=== PATIENT | female | born 1945 | race Caucasian/White ===

== ENCOUNTER 2018-04-23 12:28 | Outpatient (REF) | payer OTHER, SELFPAY ==
[2018-04-23 12:57] LABS: HCT 42.4 % (36.0-46.0); HGB 14.1 g/dL (12.0-15.5); Mean Corp. HGB Concentration 33.3 g/dL (32.0-36.0); Mean Corpuscular Hemoglobin 31.8 pg (27.0-33.0); Mean Corpuscular Volume 95.7 fL (80-95); Mean Platelet Volume 10.7 fL (8.0-11.0); Platelet Count 202 x1000/uL (130-400); RBC 4.43 m/cumm (4.00-5.20); RBC Distribution Width 12.7 % (11.7-14.6)
[2018-04-23 13:18] LABS: ALT 32 U/L (12-78); AST 16 U/L (15-37); Albumin 3.9 g/dL (3.4-5.0); Alkaline Phosphatase 65 U/L (46-116); Anion Gap 6.4 mmol/L (3-11); BUN 22 mg/dL (7-18); Bilirubin, Total 0.7 mg/dL (0.2-1.0); CO2 29.6 mmol/L (21.0-32.0); CREATININE 0.84 mg/dL (0.55-1.02); Chloride 101 mmol/L (98-107); Cholesterol 166 mg/dL (50-200); Glucose 153 mg/dL (70-100); HDL Cholesterol 71 mg/dL (40-60); LDL CHOLESTEROL 77 mg/dL (<100); Potassium 4.8 mmol/L (3.5-5.1); Sodium 137 mmol/L (136-145); Total Protein 6.4 g/dL (6.4-8.2); Triglyceride 96 mg/dL (30-150)
== END 2018-04-23 12:48 ==
LOC: NCHCN 12:28
PROVIDERS: PCP Family Medicine; Visit Provider Family Medicine
DX: I10 Essential (primary) hypertension (principal); E11.9 Type 2 diabetes mellitus without complications; E03.9 Hypothyroidism, unspecified
CPT/HCPCS: 80053; 80061; 83721; 85027

== ENCOUNTER 2018-12-04 15:30 | Outpatient (CLI) | payer OTHER, SELFPAY ==
--- NOTE | 2018-12-04 14:56 | DI.RAD_ITS ---
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 There are minimal degenerative changes involving the 1st metacarpophalangeal and interphalangeal joints.
== END 2018-12-04 15:50 ==
PROVIDERS: PCP Family Medicine; Referring Provider Family Medicine; Visit Provider Student in an Organized Health Care Education/Training Program
DX: M18.12 Unilateral primary osteoarthritis of first carpometacarpal joint, left hand (principal); M79.645 Pain in left finger(s); E11.9 Type 2 diabetes mellitus without complications; Z79.4 Long term (current) use of insulin; I10 Essential (primary) hypertension
CPT/HCPCS: 20600; 99203; 99214; 73140; J1030

== ENCOUNTER → 2019-01-29 14:25 | Outpatient (BNVA) | payer OTHER, SELFPAY | PROVIDERS: PCP Family Medicine; Referring Provider Family Medicine; Visit Provider Student in an Organized Health Care Education/Training Program | DX: M18.12 Unilateral primary osteoarthritis of first carpometacarpal joint, left hand (principal); E11.9 Type 2 diabetes mellitus without complications; Z97.4 Presence of external hearing-aid; I10 Essential (primary) hypertension; Z98.890 Other specified postprocedural states | CPT/HCPCS: 99213 ==

== ENCOUNTER 2019-05-06 10:46 | Outpatient (REF) | payer OTHER, SELFPAY ==
[2019-05-06 12:55] LABS: ALT 28 U/L (14-59); AST 13 U/L (15-37); Albumin 3.5 g/dL (3.4-5.0); Alkaline Phosphatase 68 U/L (46-116); Anion Gap 7.7 mmol/L (3-11); BUN 20 mg/dL (7-18); Bilirubin, Total 0.3 mg/dL (0.2-1.0); CO2 28.3 mmol/L (21.0-32.0); CREATININE 0.96 mg/dL (0.55-1.02); Calcium 8.6 mg/dL (8.5-10.1); Calculated LDL 82 mg/dL; Chloride 110 mmol/L (98-107); Cholesterol 159 mg/dL (<200); Estimated GFR 56.81 (mL/min/1.73m2); Glucose 102 mg/dL (74-106); HDL Cholesterol 61 mg/dL (40-60); Potassium 5.2 mmol/L (3.5-5.1); Sodium 146 mmol/L (136-145); TSH (W/Ref FT4) 0.71 uIU/mL (0.36-3.74); Total Protein 5.9 g/dL (6.4-8.2); Triglyceride 84 mg/dL (<150)
== END 2019-05-06 11:06 ==
LOC: NCHCN 10:46
PROVIDERS: PCP Family Medicine; Visit Provider Family Medicine
DX: E03.9 Hypothyroidism, unspecified (principal); E11.9 Type 2 diabetes mellitus without complications
CPT/HCPCS: 80053; 80061; 84443

== ENCOUNTER 2020-01-28 17:22 | Outpatient (REF) | payer OTHER, SELFPAY ==
[2020-01-28 21:08] LABS: ALT 24 U/L (14-59); AST 20 U/L (15-37); Albumin 3.8 g/dL (3.4-5.0); Alkaline Phosphatase 60 U/L (46-116); Anion Gap 11.9 mmol/L (3-11); BUN 19 mg/dL (7-18); Bilirubin, Total 0.6 mg/dL (0.2-1.0); CO2 25.1 mmol/L (21.0-32.0); CREATININE 1.01 mg/dL (0.55-1.02); Chloride 104 mmol/L (98-107); Estimated GFR 53.43 (mL/min/1.73m2); Glucose 112 mg/dL (74-106); Potassium 4.9 mmol/L (3.5-5.1); Sodium 141 mmol/L (136-145); TSH (W/Ref FT4) 1.74 uIU/mL (0.36-3.74); Total Protein 6.2 g/dL (6.4-8.2)
== END 2020-01-28 17:42 ==
LOC: NCHCN 17:22
PROVIDERS: PCP Family Medicine; Visit Provider Family Medicine
DX: E03.9 Hypothyroidism, unspecified (principal); I10 Essential (primary) hypertension; E11.9 Type 2 diabetes mellitus without complications
CPT/HCPCS: 80053; 84443

== ENCOUNTER 2020-02-24 00:27 | Outpatient (CLI) | payer OTHER, SELFPAY ==
--- NOTE | 2020-02-24 08:27 | DI.MAMMO_ITS ---
EXAM: MG MAMMO SCREENING CLINICAL HISTORY: SCREENING,Z12.31 TECHNIQUE: Bilateral full field digital CC and MLO mammographic images were obtained with 3D tomosyn thesis and utilizing computer aided detection (CAD). COMPARISON: Available for comparison. FINDINGS: Masses/Architectural Distortion: None seen. Microcalcifications: No suspicious pleomorphic-type are seen. Skin Thickening/Nipple Retraction: None. IMPRESSION: 1. No significant interval change with no specific features of malignancy noted. 2. Unless there is more urgent need, screening mammography is recommended, as per [employer] guidelines. BI-RADS Category 1 - Negative Breast Density - Category B - Scattered areas of fibroglandular density A negative radiographic report should not delay biopsy if a dominant or clinically suspicious mass is present. Up to ten percent of cancers are not identified on mammography. A negative report may reinforce clinical impression. Adenosis and dense breasts may obscure an underlying neoplasm. False positive reports average 6 to 10%. Patient will receive a letter notifying them of these results.
== END 2020-02-24 00:47 ==
PROVIDERS: PCP Family Medicine; Visit Provider Family Medicine
DX: Z12.31 Encounter for screening mammogram for malignant neoplasm of breast (principal)
CPT/HCPCS: 77063; 77067

== ENCOUNTER → 2020-06-11 08:41 | Outpatient (BNVA) | payer OTHER, SELFPAY | PROVIDERS: PCP Family Medicine; Referring Provider Family Medicine; Visit Provider Student in an Organized Health Care Education/Training Program | DX: M18.12 Unilateral primary osteoarthritis of first carpometacarpal joint, left hand (principal) | CPT/HCPCS: 20600; 99212; J1030 ==

== ENCOUNTER 2021-07-14 08:36 | Outpatient (REF) | payer OTHER, SELFPAY ==
[2021-07-14 14:57] LABS: HCT 40.9 % (36.0-46.0); HGB 12.9 g/dL (11.2-15.7); MCH 31.5 pg (27.0-33.0); MCHC 31.5 % (32.0-36.0); MPV 10.2 fL (8.0-11.0); Platelet Count 233 10^3/uL (130-400); RBC 4.09 10^6/uL (3.93-5.22); RDW 12.6 % (11.7-14.6); RDW-SD 45.9 fL; WBC 6.43 10^3/uL (4.4-10.8)
[2021-07-14 15:39] LABS: ALT 33 U/L (14-59); AST 19 U/L (15-37); Albumin 3.8 g/dL (3.4-5.0); Alkaline Phosphatase 73 U/L (46-116); Anion Gap 9.1 mmol/L (3-11); BUN 23 mg/dL (7-18); Bilirubin, Total 0.5 mg/dL (0.2-1.0); CO2 26.9 mmol/L (21.0-32.0); Calcium 9.6 mg/dL (8.5-10.1); Calculated LDL 68 mg/dL (<100); Chloride 106 mmol/L (98-107); Cholesterol 155 mg/dL (<200); Estimated GFR 53.91 (mL/min/1.73m2); Glucose 111 mg/dL (74-106); HDL Cholesterol 72 mg/dL (40-60); Potassium 5.2 mmol/L (3.5-5.1); Sodium 142 mmol/L (136-145); Total Protein 6.5 g/dL (6.4-8.2); Triglyceride 78 mg/dL (<150)
== END 2021-07-14 08:37 | disposition home or self-care (01) ==
LOC: NCHCN 08:36
PROVIDERS: PCP Family Medicine; Visit Provider Family Medicine
DX: I10 Essential (primary) hypertension (principal); E11.9 Type 2 diabetes mellitus without complications; R19.7 Diarrhea, unspecified
CPT/HCPCS: 80053; 80061; 85027; 83036

== ENCOUNTER → 2021-09-23 13:51 | Outpatient (BNVA) | payer MEDICARE, SELFPAY | PROVIDERS: PCP Family Medicine; Referring Provider Family Medicine; Visit Provider Physical Therapy Assistant | DX: R19.7 Diarrhea, unspecified (principal); I10 Essential (primary) hypertension; E11.9 Type 2 diabetes mellitus without complications; E03.9 Hypothyroidism, unspecified | CPT/HCPCS: 99215 ==

== ENCOUNTER 2021-10-06 03:45 | Outpatient (CLI) | payer MEDICARE, SELFPAY ==
[2021-10-06 11:53] LABS: TSH (W/Ref FT4) 2.35 uIU/mL (0.36-3.74)
== END 2021-10-06 03:46 | disposition home or self-care (01) ==
LOC: LBO 03:45
PROVIDERS: PCP Family Medicine; Visit Provider Physical Therapy Assistant
DX: E03.9 Hypothyroidism, unspecified (principal); R19.7 Diarrhea, unspecified
CPT/HCPCS: 36415; 84443

== ENCOUNTER → 2021-10-07 10:54 | Outpatient (BNVA) | payer MEDICARE, SELFPAY | PROVIDERS: PCP Family Medicine; Visit Provider Physical Therapy Assistant | DX: Z12.11 Encounter for screening for malignant neoplasm of colon (principal); R19.7 Diarrhea, unspecified; Z86.010 Personal history of colon polyps ==

== ENCOUNTER 2021-11-16 09:03 | Day surgery (SDC) | payer MEDICARE, SELFPAY ==
[2021-11-16] VITALS (8 sets, daily range): BP systolic 103–125; BP diastolic 62–78; PULSE 86–95; RESP 12–19; TEMP 36.3–36.9; O2SAT 91–99; BMI 23.6
--- NOTE | 2021-11-16 06:40 | W.PREOPHP ---
Assessment and Plan Assessment and plan (1) Encounter for colorectal cancer screening: Status: Acute Assessment and plan: The patient is here for Colonoscopy pre-op. Her last screening was in 2017 and was remarkable for tubular adenomatous polyp. She has no family history of colon cancer. She has not had any bowel habit changes. -Discussed colonoscopy bowel prep as well as the procedure. Discussed possible complications of the procedure to include bleeding, pain, perforation, missed small lesion/polyp, sore throat, aspiration and adverse reaction to the medications. Questions were answered to patient?s satisfaction. No guarantees were implied or given.? P// Colonoscopy under sedation. History of Present Illness Narrative: The patient is here for Colonoscopy pre-op. Her last screening was in 2017 and was remarkable for tubular adenomatous polyp. She has no family history of colon cancer. She has not had any bowel habit changes. 75 y/o female with a history of HTN, Type 2 DM, hypothyroidisim and depression presents to discuss proceeding with Colonoscopy. Patient presented previously for further evaluation of urgent, loose BMs at in the middle of the night most nights of the week. She states that she wakes feeling fecal urgency and must run to the restroom. Following passing the stool, her urge to have a BM resolves and she is able to return to sleep. Patient proceeded with holding her Metformin dosing at night with significant improvement in her symptoms. She reports she only had one episode during the 2 week period. She also reports that she was taking Miralax daily during this period of time. Patient's last Colonoscopy was in 2017 which was remarkable for tubular adenomatous polyp. She checked her BS at home during this time and her BS ranaged from 76-275 fasted. TSH was checked and was 2.35 on 10/06/21. Denies chest pain, palpitations, dyspnea or dyspnea with exertion. Denies personal or family history of adverse reactions to anesthesia. Denies any history of [place], stroke, seizures, bleeding or clotting disorders. Denies having any implanted metal. Denies any history of chemotherapy or radiation. No changes in her health since she was last seen Review of Systems All systems reviewed & are unremarkable except as noted in HPI and below PFSH All Active Problems Encounter for colorectal cancer screening (Acute) Diarrhea (Acute) Arthritis of carpometacarpal (CMC) joint of left thumb (Acute) Injection: 12/04/2018 Arthritis of carpometacarpal (CMC) joint of right thumb (Acute) Medical History Depression Diabetes Hypertension Hypothyroid Ptosis of both eyelids Tubular adenoma of colon (12/26/16) Surgical History Abdominal hysterectomy Colonoscopy - IV Sedation 2006 Colonoscopy - MAC (12/26/16) Oophrectomy, Both Tonsillectomy and adenoidectomy Family History Mother CHF (congestive heart failure) Father CHF (congestive heart failure) Colon polyps Social History Smoking/Tobacco Use Status: Former Tobacco Use Quit Date: 06/04/81 Smoking risk assessment performed?: Yes Alcohol Intake: current Alcohol Intake frequency: 0-2 drinks per day Alcohol type: wine and hard liquor Drug use: Never Substance use type: does not use Do you feel safe at home: Yes Do you feel safe in your relationship?: Yes Meds Allergies and Home Medications Allergies Allergy/AdvReac Type Severity Reaction Status Date / Time No Known Allergies Allergy Unverified 11/16/21 09:26 Home Medications Medication Instructions Recorded Confirmed Type aspirin 81 mg chewable tablet 81 mg PO DAILY 12/01/16 11/16/21 History citalopram 10 mg tablet (Celexa) 20 mg PO DAILY 12/01/16 11/16/21 History glipizide 10 mg tablet 10 mg PO DAILY 12/01/16 11/16/21 History insulin glargine 100 unit/mL 33 units SQ HS 12/01/16 11/16/21 History subcutaneous solution (Lantus U-100 Insulin) levothyroxine 100 mcg tablet 100 mcg PO DAILY 12/01/16 11/16/21 History metformin 1,000 mg tablet 1,000 mg PO BID 12/01/16 11/16/21 History multivitamin with minerals (DAILY 1 ea PO DAILY 12/01/16 11/16/21 History VITAMIN FORMULA-MINERALS tablet) losartan 100 mg tablet 100 mg PO DAILY 09/22/21 11/16/21 History cyanocobalamin (vitamin B-12) 1,000 mcg PO DAILY 09/23/21 11/16/21 History 1,000 mcg capsule bisacodyl 5 mg tablet,delayed 5 mg PO ONCE colonscopy bowel prep 10/07/21 11/16/21 Rx release (Dulcolax (bisacodyl)) #4 tabs polyethylene glycol 3350 17 238 g PO ONCE colonoscopy prep 10/07/21 11/16/21 Rx gram/dose oral powder #238 grams polyethylene glycol 3350 17 17 g PO DAILY 10/07/21 11/16/21 History gram/dose oral powder (Miralax) Exam Const General: comfortable and no acute distress [facility] Head: normocephalic and atraumatic Resp Effort & Inspection: normal respiratory effort Auscultation: clear to auscultation bilaterally Cardio Rate: regular rate Rhythm: regular rhythm Heart Sounds: no gallops, no murmurs and no rubs GI Inspection: normal to inspection Palpation: soft, no hepatosplenomegaly and nontender
--- NOTE | 2021-11-16 06:43 | W.COLOREPORT ---
Colonoscopy Report Date of procedure: 11/16/21 Pre-op diagnosis general: Colon Cancer screening and Hx of polyps Post-op diagnosis procedure note: same Procedure: Partial colonscopy- had to abort because patient started throwing up bile and acid Surgeon: Lida Vital Anesthesia Type: General:No Airway Estimated blood loss (mL): 0 Pathology: none sent Complications: None Disposition: same day Indications: The patient is here for Colonoscopy pre-op. Her last screening was in 2017 and was remarkable for tubular adenomatous polyp. She has no family history of colon cancer. She has not had any bowel habit changes. -Discussed colonoscopy bowel prep as well as the procedure. Discussed possible complications of the procedure to include bleeding, pain, perforation, missed small lesion/polyp, sore throat, aspiration and adverse reaction to the medications. Questions were answered to patient?s satisfaction. No guarantees were implied or given.? Prep: Miralax/Dulcolax Procedure Start Time: 10:36 Procedure Description: After informed consent was obtained the patient was taken to the procedure room and placed in a left decubitous position. Monitors were applied and a time out was done. The patients name, date of , procedure, allergies to medications and metal in their body was reviewed. The patient was then sedated. Once sedated and comfortable a rectal exam was done. External exam was normal. Internal exam revealed a normal sphincter tone and no palpable masses. The scope was then introduced and retro-flexed. No internal hemorrhoids, polyps or masses were identified on retro-flexion. The scope was then advanced to the transverse colon. At this point the patient started retching and then started throwing up bile. She briefly desaturated. At that point the scope was removed as there was concern for aspiration. The patient was slowly woken up and watched in the PACU. She had a cough but no shortness of breath and no chest pain.
--- NOTE | 2021-11-16 06:44 | W.PM.DSUDISC ---
Discharge Plan Disposition Patient Disposition: HOME Condition: Good Discharge Details Reason For Visit: Colonoscopy Attending Provider: Lida Vital Primary Care Provider: Zoe Fan Home Meds and New Rx's Prescriptions: Continued cyanocobalamin (vitamin B-12) 1,000 mcg capsule 1,000 mcg PO DAILY polyethylene glycol 3350 [Miralax] 17 gram/dose powder 17 g PO DAILY insulin glargine [Lantus U-100 Insulin] 100 UNIT/1 ML solution 33 units SQ HS citalopram [Celexa] 10 MG tablet 20 mg PO DAILY glipizide 10 MG tablet 10 mg PO DAILY levothyroxine 100 MCG tablet 100 mcg PO DAILY metformin 1,000 MG tablet 1,000 mg PO BID DAILY VITAMIN FORMULA-MINERALS 1 EACH tablet 1 ea PO DAILY aspirin 81 MG tablet,chewable 81 mg PO DAILY losartan 100 mg tablet 100 mg PO DAILY Discontinued polyethylene glycol 3350 17 gram/dose powder 238 g PO ONCE Qty: 238 0RF Rx Instructions: take per colonoscopy instructions bisacodyl [Dulcolax (bisacodyl)] 5 mg tablet,delayed release (DR/EC) 5 mg PO ONCE Qty: 4 0RF Rx Instructions: take per colonoscopy instructions Discharge Instructions Additional Instructions: Other- unfortunately you started throwing up as I was going in with the scope and Your Oxygen saturation droped. We didn't feel that it would be safe to continue because of the risk of aspiration. Follow up: Please call the office to reschedule the colonoscopy. We will plan to do it with you intubated next time so we can make sure that your airway is protected Please call if you develop: fevers >101.5 Shortness of breath or severe cough DAY SURGERY UNIT POST ENDOSCOPY INSTRUCTIONS Instructions for everyone who is given Anesthesia: For your safety, please do the following for the next 24 Hours: a. Do not drive or operate dangerous equipment b. Do not drink alcohol beverages or use any recreational drugs for the first 24 hours or while taking pain medications. The medications in your body may have a reaction that can be dangerous. c. Do not make any important decisions or sign any important papers 1. Generally there are no restrictions on your activity after a day or so has gone by, but you may feel a bit fatigued for a few days. 2. After you arrive home you may have a light meal and return to a normal diet as you can tolerate it without feeling sick to your stomach. 3. After surgery, you may feel pain or discomfort. This should be only transient, but if it persists please contact your doctor. 4. If there are any questions regarding the findings of your procedure, please feel free to contact your doctor. 6. If you are unable to contact your doctor with a problem, contact the hospital at [phone]. 7. Continue all your regular medications unless directed otherwise. I understand the above instructions and have no questions. Signature of Patient or Responsible Adult Escort Date/Time Name of Responsible Adult Escort Signature of Nurse Date/Time Activity:: Activity as Tolerated Diet:: As Tolerated Discharge Orders Discharge Orders: Discharge Order (Routine); Ordered 11/16/21 Ordered By: Lida Vital DS: Diagnosis Discharge Diagnosis (1) Encounter for colorectal cancer screening: Status: Acute
[2021-11-16] MEDS: Lactated Ringers 1,000 ML 80 ML IV (09:41)
--- NOTE | 2021-11-16 12:24 | W.ANESPOSTOP ---
Postoperative Evaluation Date, Time and Location Date Performed: 11/16/21 Time Performed: 12:24 Patient Location: Day Surgery Unit Vital Signs Most Recent Imported Vital Signs: Most Recent Vital Signs Temp Pulse Resp BP Pulse Ox 36.7 C 93 H 17 111/69 95 11/16/21 11:56 11/16/21 11:56 11/16/21 11:56 11/16/21 11:56 11/16/21 11:56 Pain Score Most Recent Pain Score: Most Recent Pain Score Pain Level 0 11/16/21 11:26 Assessment Mental Status: Awake (Alert & Oriented to Patient Baseline) Airway and Respiratory Function: Abnormal Respiratory exam (See explanation) (Patient is expectorating clear secretions, says she feels like there is fluid that she is clearing. Patient denying dyspnea. RA O2 saturations ranging 93-95%. Patient educated to signs and symptoms of worsening dyspnea and respiratory infection. ) Cardiovascular Function: Hemodynamically Stable Hydration Status: Adequately Hydrated Nausea & Vomiting: No Nausea or Vomiting Pain: Pt. Denies Any Pain Peripheral Nerve Block: Patient did not receive a nerve block Teaching Patient Teaching: Other (See respiratory note. )
--- NOTE | 2021-11-16 12:57 | W.ANESPRE ---
General Info Date of Service Date Performed: 11/16/21 Height: 5 ft 10 in Weight: 74.9 kg Body Mass Index (BMI): 23.6 Surgical Procedure: Operation Date: 11/16/21 10:50 Proposed Procedure Side Surgeon p Colonoscopy Lida Vital MD Actual Procedure Side Surgeon p Incomplete Colonoscopy Not Applicable Lida Vital MD Pre-Op Diagnosis Post-Op Diagnosis COLON CANCER SCREENING HISTORY OF POLYPS INCOMPLETE COLONOSCOPY/ABORTED Meds Allergies and Home Medications Allergies Allergy/AdvReac Type Severity Reaction Status Date / Time No Known Allergies Allergy Unverified 11/16/21 09:26 Home Medication Medication Instructions Recorded aspirin 81 mg chewable tablet 81 mg PO DAILY 12/01/16 citalopram 10 mg tablet (Celexa) 20 mg PO DAILY 12/01/16 glipizide 10 mg tablet 10 mg PO DAILY 12/01/16 insulin glargine 100 unit/mL 33 units SQ HS 12/01/16 subcutaneous solution (Lantus U-100 Insulin) levothyroxine 100 mcg tablet 100 mcg PO DAILY 12/01/16 metformin 1,000 mg tablet 1,000 mg PO BID 12/01/16 multivitamin with minerals (DAILY 1 ea PO DAILY 12/01/16 VITAMIN FORMULA-MINERALS tablet) losartan 100 mg tablet 100 mg PO DAILY 09/22/21 cyanocobalamin (vitamin B-12) 1,000 mcg PO DAILY 09/23/21 1,000 mcg capsule polyethylene glycol 3350 17 17 g PO DAILY 10/07/21 gram/dose oral powder (Miralax) Current Visit Medications: Current Medications Generic Name Dose Route Start Last Admin Trade Name Freq PRN Reason Stop Dose Admin Hyoscyamine Sulfate 0.125 mg 11/16/21 06:45 Hyoscyamine 0.125 Mg Sl/Oral/Chew SL DIRECTED PRN Ringer's Solution 1,000 mls @ 80 mls/hr 11/16/21 06:00 11/16/21 11:56 IV 12/15/21 23:59 Infused INFUSION JEFFERY Infusion IV Miscellaneous Supplies 1 each 11/16/21 06:00 Iv Access IV 12/15/21 23:59 DIRECTED JEFFERY Ondansetron HCl 4 mg 11/16/21 06:45 Ondansetron 4 Mg/2 Ml Vial IVP Q4H PRN PRN Nausea / Vomiting Sodium Chloride 0 ml 11/16/21 06:00 Normal Saline Flush 10 Ml Syr IV 12/15/21 23:59 PRN PRN Sodium Chloride 0 ml 11/16/21 06:00 Normal Saline 10 Ml Vial IJ 12/15/21 23:59 DIRECTED PRN Sterile Water 0 ml 11/16/21 06:00 Water,Injection,Sterile 10 Ml Vial IJ 12/15/21 23:59 DIRECTED PRN PFSH Active Problems Active Problems: Problem Status Onset Code Encounter for colorectal cancer screening Z12.11, Z12.12 Diarrhea R19.7 Arthritis of carpometacarpal (CMC) joint of left thumb M18.12 Arthritis of carpometacarpal (CMC) joint of right thumb M18.11 Medical History Medical History Depression Diabetes Hypertension Hypothyroid Ptosis of both eyelids Tubular adenoma of colon (12/26/16) Surgical History Surgical History Abdominal hysterectomy Colonoscopy - IV Sedation 2006 Colonoscopy - MAC (12/26/16) Oophrectomy, Both Tonsillectomy and adenoidectomy Tobacco Smoking/Tobacco Use Status: Former Tobacco Use Alcohol Alcohol Intake: current Alcohol intake frequency: 0-2 drinks per day Alcohol type: wine and hard liquor Substance Use Substance use: Never Substance use type: does not use Vital Signs and Lab Results Vital Signs Most Recent Vital Signs in EMR: Most Recent Vital Signs Temp Pulse Resp BP Pulse Ox 36.7 C 93 H 17 111/69 95 11/16/21 11:56 11/16/21 11:56 11/16/21 11:56 11/16/21 11:56 11/16/21 11:56 Point of Care Results Point of Care Results: Finger Stick Blood Glucose 133 11/16/21 11:18 Lab Results Blood Type / Crossmatch: No Data to Display Complete Blood Count: No Data to Display Complete Metabolic Panel: No Data to Display Liver Function Panel: No Data to Display Coagulation Panel: No Data to Display Cardiac Panel: No Data to Display Arterial Blood Gas: No Data to Display Venous Blood Gas: No Data to Display Pancreas Panel: No Data to Display Thyroid Panel: No Data to Display Infectious Disease: No Data to Display Blood Cultures: No Data to Display Toxicology Panel: No Data to Display Anesthesia Assessment and Plan Anesthesia History Personal History: No History of Anesthesia Complications Family History: No Family History of Anesthesia Complications Exercise Tolerance Exercise Tolerance: Metabolic Equivalents>4 Pertinent Negatives Pertinent Negatives: No Symptoms of GERD, No Major Cardiovascular Symptoms or Complaints, No Major Pulmonary Symptoms or Complaints and No History of CVA/TIA Cardiac & Pulmonary Exam Cardiac Exam: Normal S1/S2 Heart Sounds Pulmonary Exam: Clear Bilateral Breath Sounds Implantable Cardiac Device Does patient have a Pacemaker or an ICD?: No Airway Exam Known Difficult Airway: No Mallampati Class: 2 Mouth Opening: Normal (> 3cm) Thyromental Distance: Greater than 3 cm Neck Range of Motion: Full ROM Neck Circumference: Normal Teeth Condition: Normal Dentition ASA Classification ASA Score: ASA 2 Emergency Case?: No NPO Status NPO Status: NPO Clears >2 hours, Solids >8 hours Anesthesia Plan Resuscitation Status: Full Code Anesthesia Technique: General Anesthesia Airway Planned: Natural Airway Monitors Used: Standard Monitors
== END 2021-11-16 12:45 | disposition home or self-care (01) ==
PROVIDERS: PCP Family Medicine; Visit Provider Surgery
PROC: 0DJD8ZZ Inspection of Lower Intestinal Tract, Via Natural or Artificial Opening Endoscopic (ICD-10-PCS; CPT 45378; principal; 2021-11-16 10:45)
DX: Z12.11 Encounter for screening for malignant neoplasm of colon (principal); E11.9 Type 2 diabetes mellitus without complications; I10 Essential (primary) hypertension; Z86.010 Personal history of colon polyps; R11.10 Vomiting, unspecified
CPT/HCPCS: G0105

== ENCOUNTER 2022-01-16 02:24 | Outpatient (CLI) | payer MEDICARE, SELFPAY ==
[2022-01-16 10:42] LABS: Source Nasal/Nares
[2022-01-16 15:33] LABS: COVID-19 PCR Negative (Negative)
== END 2022-01-16 02:25 | disposition home or self-care (01) ==
LOC: LBO 02:24
PROVIDERS: PCP Family Medicine; Visit Provider Surgery
DX: Z20.822 Contact with and (suspected) exposure to COVID-19 (principal); Z01.818 Encounter for other preprocedural examination
CPT/HCPCS: 87635

== ENCOUNTER 2022-01-18 07:21 | Day surgery (SDC) | payer MEDICARE, SELFPAY ==
[2022-01-18] VITALS (9 sets, daily range): BP systolic 113–133; BP diastolic 55–79; PULSE 69–93; RESP 16–18; TEMP 36.3–36.6; O2SAT 97–100; BMI 23.9
--- NOTE | 2022-01-18 05:15 | W.PREOPHP ---
Assessment and Plan Assessment and plan (1) Encounter for colorectal cancer screening: Status: Acute Assessment and plan: The patient is here for Colonoscopy pre-op. Her last screening was in 2017 and was remarkable for tubular adenomatous polyp. She has no family history of colon cancer. She has not had any bowel habit changes. -Discussed colonoscopy bowel prep as well as the procedure. Discussed possible complications of the procedure to include bleeding, pain, perforation, missed small lesion/polyp, sore throat, aspiration and adverse reaction to the medications. Questions were answered to patient?s satisfaction. No guarantees were implied or given.? She had emesis during the last colonoscopy and we had to stop the procedure. She will be intubated today to protect her airway. P// Colonoscopy under anesthesia. History of Present Illness Narrative: The patient is here to attempt another Colonoscopy. We attempted a colonoscopy in November but the patient started to Vomit and the procedure was aborted to avoid aspiration. She will be done in the operating room with intubation today. Her last screening was in 2016 and was remarkable for tubular adenomatous polyp. She has no family history of colon cancer. She has not had any bowel habit changes. 75 y/o female with a history of HTN, Type 2 DM, hypothyroidisim and depression presents to discuss proceeding with Colonoscopy. Patient presented previously for further evaluation of urgent, loose BMs at in the middle of the night most nights of the week. She states that she wakes feeling fecal urgency and must run to the restroom. Following passing the stool, her urge to have a BM resolves and she is able to return to sleep. Patient proceeded with holding her Metformin dosing at night with significant improvement in her symptoms. She reports she only had one episode during the 2 week period. She also reports that she was taking Miralax daily during this period of time. Patient's last Colonoscopy was in 2016 which was remarkable for tubular adenomatous polyp. She checked her BS at home during this time and her BS ranaged from 76-275 fasted. TSH was checked and was 2.35 on 10/06/21. Denies chest pain, palpitations, dyspnea or dyspnea with exertion. Denies personal or family history of adverse reactions to anesthesia. Denies any history of [place], stroke, seizures, bleeding or clotting disorders. Denies having any implanted metal. Denies any history of chemotherapy or radiation. No changes in her health since she was last seen? Review of Systems All systems reviewed & are unremarkable except as noted in HPI and below PFSH All Active Problems Arthritis of carpometacarpal (CMC) joint of right thumb (Acute) Arthritis of carpometacarpal (CMC) joint of left thumb (Acute) Injection: 12/04/2018 Diarrhea (Acute) Encounter for colorectal cancer screening (Acute) Medical History Depression Diabetes Hypertension Hypothyroid Ptosis of both eyelids Tubular adenoma of colon (12/26/16) Surgical History Abdominal hysterectomy Colonoscopy - IV Sedation 2006 Colonoscopy - MAC (12/26/16) Hx of appendectomy Oophrectomy, Both Tonsillectomy and adenoidectomy Family History Mother CHF (congestive heart failure) Father CHF (congestive heart failure) Colon polyps Social History Smoking/Tobacco Use Status: Former Tobacco Use Quit Date: 06/04/81 Smoking risk assessment performed?: Yes Alcohol Intake: current Alcohol Intake frequency: 0-2 drinks per day Alcohol type: wine and hard liquor Drug use: Never Substance use type: does not use Details: alcohol: t-2, one drink Do you feel safe at home: Yes Do you feel safe in your relationship?: Yes Meds Allergies and Home Medications Allergies Allergy/AdvReac Type Severity Reaction Status Date / Time No Known Allergies Allergy Unverified 01/18/22 07:50 Home Medications Medication Instructions Recorded Confirmed Type aspirin 81 mg chewable tablet 81 mg PO DAILY 12/01/16 01/18/22 History citalopram 10 mg tablet (Celexa) 20 mg PO DAILY 12/01/16 01/18/22 History glipizide 10 mg tablet 10 mg PO DAILY 12/01/16 01/18/22 History insulin glargine 100 unit/mL 33 units SQ HS 12/01/16 01/18/22 History subcutaneous solution (Lantus U-100 Insulin) levothyroxine 100 mcg tablet 100 mcg PO DAILY 12/01/16 01/18/22 History metformin 1,000 mg tablet 1,000 mg PO DAILY 12/01/16 01/18/22 History multivitamin with minerals (DAILY 1 ea PO DAILY 12/01/16 01/18/22 History VITAMIN FORMULA-MINERALS tablet) losartan 100 mg tablet 100 mg PO DAILY 09/22/21 01/18/22 History cyanocobalamin (vitamin B-12) 1,000 mcg PO DAILY 09/23/21 01/18/22 History 1,000 mcg capsule polyethylene glycol 3350 17 17 g PO DAILY 10/07/21 01/18/22 History gram/dose oral powder (Miralax) bisacodyl 5 mg tablet,delayed 5 mg PO ONCE #4 tabs 12/07/21 01/18/22 Rx release (Dulcolax (bisacodyl)) polyethylene glycol 3350 17 gram 255 g PO DAILY #15 ea 12/07/21 01/18/22 Rx oral powder packet omeprazole 20 mg capsule,delayed 20 mg PO DAILY 01/17/22 01/18/22 History release ibuprofen 600 mg tablet 500 mg 01/18/22 History sitagliptin 100 mg tablet (Januvia) 100 mg PO DAILY 01/18/22 01/18/22 History Exam Const General: comfortable and no acute distress Orientation: alert and oriented x3 HENMT Head: normocephalic and atraumatic Resp Effort & Inspection: normal respiratory effort Auscultation: clear to auscultation bilaterally Cardio Rate: regular rate Rhythm: regular rhythm
--- NOTE | 2022-01-18 05:19 | COLE_ITS ---
Colonoscopy Report Date of procedure: 01/18/22 Pre-op diagnosis general: Colon Cancer Screening Post-op diagnosis procedure note: other (polyps) Procedure: Colonoscopy with polypectomy Surgeon: Lida Vital Anesthesia Type: General LMA/ETT Estimated blood loss (mL): 3 Pathology: other (Ascending polyp, splenic flexure poly, descending polyps x8, sigmoid polyp and rectal polyp) Complications: None Disposition: PACU Indications: The patient is here for Colonoscopy pre-op. Her last screening was in 2017 and was remarkable for tubular adenomatous polyp. She has no family history of colon cancer. She has not had any bowel habit changes. -Discussed colonoscopy bowel prep as well as the procedure. Discussed possible complications of the procedure to include bleeding, pain, perforation, missed small lesion/polyp, sore throat, aspiration and adverse reaction to the me dications. Questions were answered to patient?s satisfaction. No guarantees were implied or given.? P// Colonoscopy under sedation. Prep: Miralax/Dulcolax Procedure Start Time: 09:20 Procedure End Time: 10:00 Retraction Time: 24 minutes Findings: multiple small polyps Procedure Description: After informed consent was obtained the patient was taken to the operating room and placed in a left decubitous position. Monitors were applied and a time out was done. The patients name, date of , procedure, allergies to medications and metal in their body was reviewed. The patient was then placed under general anesthesia and intubated. Once comfortable a rectal exam was done. External exam was normal. Internal exam revealed a normal sphincter tone and no palpable masses. The scope was then introduced and retro-flexed. No internal hemorrhoids, polyps or masses were identified on retro-flexion. The scope was then advanced to the cecum without difficulty. The ileocecal vlave and appendiceal orifice were identified. The prep was adequate. The scope was then slowly retracted over 24 minutes back into the rectum. Polyps were removed with cold forceps in the ascending colon x1, splenic felxure x1, descending colon polyps x8, sigmoid polyp x1, and rectum. There was no diverticulosis noted. The scope was removed and the patient was woken up and taken back to Same day surgery in stable condition. The patient tolerated the procedure well and there were no immediate complications. .
--- NOTE | 2022-01-18 05:21 | W.PM.DSUDISC ---
Discharge Plan Disposition Patient Disposition: HOME Condition: Good Discharge Details Reason For Visit: Colonoscopy Attending Provider: Lida Vital Primary Care Provider: Zoe Fan Home Meds and New Rx's Prescriptions: Continued cyanocobalamin (vitamin B-12) 1,000 mcg capsule 1,000 mcg PO DAILY insulin glargine [Lantus U-100 Insulin] 100 UNIT/1 ML solution 33 units SQ HS citalopram [Celexa] 10 MG tablet 20 mg PO DAILY glipizide 10 MG tablet 10 mg PO DAILY levothyroxine 100 MCG tablet 100 mcg PO DAILY metformin 1,000 MG tablet 1,000 mg PO DAILY DAILY VITAMIN FORMULA-MINERALS 1 EACH tablet 1 ea PO DAILY aspirin 81 MG tablet,chewable 81 mg PO DAILY losartan 100 mg tablet 100 mg PO DAILY polyethylene glycol 3350 17 gram powder in packet 255 g PO DAILY Qty: 15 0RF Rx Instructions: Mix 255 gm in 64 oz of gatorade or juice. Drink as directed omeprazole 20 mg Capsule,Delayed Release(Dr/Ec) 20 mg PO DAILY ibuprofen 600 mg Tablet 500 mg Label Comments: pt. reports taking three times a day Januvia 100 mg Tablet 100 mg PO DAILY Discontinued polyethylene glycol 3350 [Miralax] 17 gram/dose powder 17 g PO DAILY Label Comments: pt. denies using at home bisacodyl [Dulcolax (bisacodyl)] 5 mg tablet,delayed release (DR/EC) 5 mg PO ONCE Qty: 4 0RF Rx Instructions: Take as directed for your colonoscopy Discharge Instructions Instructions: Colorectal Polyps (DC) Additional Instructions: Findings: multiple polyps Follow up: depends on final pathology Please call if you develop: fevers >101.5 Nausea or Vomiting Abdominal pain that is not transient Rectal bleeding that is more then a tbsp A hard abdomen and inability to pass gas DAY SURGERY UNIT POST ENDOSCOPY INSTRUCTIONS Instructions for everyone who is given Anesthesia: For your safety, please do the following for the next 24 Hours: a. Do not drive or operate dangerous equipment b. Do not drink alcohol beverages or use any recreational drugs for the first 24 hours or while taking pain medications. The medications in your body may have a reaction that can be dangerous. c. Do not make any important decisions or sign any important papers 1. Generally there are no restrictions on your activity after a day or so has gone by, but you may feel a bit fatigued for a few days. 2. After you arrive home you may have a light meal and return to a normal diet as you can tolerate it without feeling sick to your stomach. 3. After surgery, you may feel pain or discomfort. This should be only transient, but if it persists please contact your doctor. 4. If there are any questions regarding the findings of your procedure, please feel free to contact your doctor. 6. If you are unable to contact your doctor with a problem, contact the hospital at [phone]. 7. Continue all your regular medications unless directed otherwise. I understand the above instructions and have no questions. Signature of Patient or Responsible Adult Escort Date/Time Name of Responsible Adult Escort Signature of Nurse Date/Time Stand Alone Forms: Anesthesia Discharge Inst., Konrad Coronado (DSU) Activity:: Activity as Tolerated Diet:: As Tolerated Discharge Orders Discharge Orders: Discharge Order (Routine); Ordered 01/18/22 Ordered By: Lida Vital DS: Diagnosis Discharge Diagnosis (1) Encounter for colorectal cancer screening: Status: Acute
[2022-01-18] MEDS: Lactated Ringers 1,000 ML 80 ML IV (08:10)
--- NOTE | 2022-01-18 08:46 | W.ANESPRE ---
General Info Date of Service Date Performed: 01/18/22 Height: 5 ft 10 in Weight: 75.6 kg Body Mass Index (BMI): 23.9 Surgical Procedure: Operation Date: 01/18/22 09:05 Proposed Procedure Side Surgeon misti Vital MD Meds Allergies and Home Medications Allergies Allergy/AdvReac Type Severity Reaction Status Date / Time No Known Allergies Allergy Unverified 01/18/22 07:50 Home Medication Medication Instructions Recorded aspirin 81 mg chewable tablet 81 mg PO DAILY 12/01/16 citalopram 10 mg tablet (Celexa) 20 mg PO DAILY 12/01/16 glipizide 10 mg tablet 10 mg PO DAILY 12/01/16 insulin glargine 100 unit/mL 33 units SQ HS 12/01/16 subcutaneous solution (Lantus U-100 Insulin) levothyroxine 100 mcg tablet 100 mcg PO DAILY 12/01/16 metformin 1,000 mg tablet 1,000 mg PO DAILY 12/01/16 multivitamin with minerals (DAILY 1 ea PO DAILY 12/01/16 VITAMIN FORMULA-MINERALS tablet) losartan 100 mg tablet 100 mg PO DAILY 09/22/21 cyanocobalamin (vitamin B-12) 1,000 mcg PO DAILY 09/23/21 1,000 mcg capsule polyethylene glycol 3350 17 17 g PO DAILY 10/07/21 gram/dose oral powder (Miralax) bisacodyl 5 mg tablet,delayed 5 mg PO ONCE #4 tabs 12/07/21 release (Dulcolax (bisacodyl)) polyethylene glycol 3350 17 gram 255 g PO DAILY #15 ea 12/07/21 oral powder packet omeprazole 20 mg capsule,delayed 20 mg PO DAILY 01/17/22 release ibuprofen 600 mg tablet 500 mg 01/18/22 sitagliptin 100 mg tablet (Januvia) 100 mg PO DAILY 01/18/22 Current Visit Medications: Current Medications Generic Name Dose Route Start Last Admin Trade Name Freq PRN Reason Stop Dose Admin Hyoscyamine Sulfate 0.125 mg 01/18/22 05:21 Hyoscyamine 0.125 Mg Sl/Oral/Chew SL DIRECTED PRN Ringer's Solution 1,000 mls @ 80 mls/hr 01/18/22 06:00 01/18/22 08:10 IV 02/16/22 23:59 80 mls/hr INFUSION JEFFERY Administration IV Miscellaneous Supplies 1 each 01/18/22 06:00 Iv Access IV 02/16/22 23:59 DIRECTED JEFFERY Ondansetron HCl 4 mg 01/18/22 05:21 Ondansetron 4 Mg/2 Ml Vial IVP Q4H PRN PRN Nausea / Vomiting Sodium Chloride 0 ml 01/18/22 06:00 Normal Saline Flush 10 Ml Syr IV 02/16/22 23:59 PRN PRN Sodium Chloride 0 ml 01/18/22 06:00 Normal Saline 10 Ml Vial IJ 02/16/22 23:59 DIRECTED PRN Sterile Water 0 ml 01/18/22 06:00 Water,Injection,Sterile 10 Ml Vial IJ 02/16/22 23:59 DIRECTED PRN PFSH Active Problems Active Problems: Problem Status Onset Code Arthritis of carpometacarpal (CMC) joint of right thumb M18.11 Arthritis of carpometacarpal (CMC) joint of left thumb M18.12 Diarrhea R19.7 Encounter for colorectal cancer screening Z12.11, Z12.12 Medical History Medical History Depression Diabetes Hypertension Hypothyroid Ptosis of both eyelids Tubular adenoma of colon (12/26/16) Surgical History Surgical History Abdominal hysterectomy Colonoscopy - IV Sedation 2006 Colonoscopy - MAC (12/26/16) Hx of appendectomy Oophrectomy, Both Tonsillectomy and adenoidectomy Tobacco Smoking/Tobacco Use Status: Former Tobacco Use Alcohol Alcohol Intake: current Alcohol intake frequency: 0-2 drinks per day Alcohol type: wine and hard liquor Substance Use Substance use: Never Substance use type: does not use Details: alcohol: t-2, one drink Vital Signs and Lab Results Vital Signs Most Recent Vital Signs in EMR: Most Recent Vital Signs Temp Pulse Resp BP Pulse Ox 36.4 C L 93 H 18 117/79 100 01/18/22 07:59 01/18/22 07:59 01/18/22 07:59 01/18/22 07:59 01/18/22 07:59 Point of Care Results Point of Care Results: Finger Stick Blood Glucose 78 01/18/22 08:16 Lab Results Blood Type / Crossmatch: No Data to Display Complete Blood Count: No Data to Display Complete Metabolic Panel: No Data to Display Liver Function Panel: No Data to Display Coagulation Panel: No Data to Display Cardiac Panel: No Data to Display Arterial Blood Gas: No Data to Display Venous Blood Gas: No Data to Display Pancreas Panel: No Data to Display Thyroid Panel: No Data to Display Infectious Disease: Coronavirus (COVID-19)(PCR) Negative (Negative) 01/16/22 08:15 Coronavirus 2019 Source Nasal/Nares 01/16/22 08:15 Blood Cultures: No Data to Display Toxicology Panel: No Data to Display Anesthesia Assessment and Plan Anesthesia History Personal History: No History of Anesthesia Complications Family History: No Family History of Anesthesia Complications Exercise Tolerance Exercise Tolerance: Metabolic Equivalents>4 Pertinent Negatives Pertinent Negatives: No Symptoms of GERD, No Major Cardiovascular Symptoms or Complaints, No Major Pulmonary Symptoms or Complaints and No History of CVA/TIA Cardiac & Pulmonary Exam Cardiac Exam: Normal S1/S2 Heart Sounds Pulmonary Exam: Clear Bilateral Breath Sounds Implantable Cardiac Device Does patient have a Pacemaker or an ICD?: No Airway Exam Known Difficult Airway: No Mallampati Class: 3 Mouth Opening: Normal (> 3cm) Thyromental Distance: Greater than 3 cm Neck Range of Motion: Full ROM Neck Circumference: Normal Teeth Condition: Normal Dentition ASA Classification ASA Score: ASA 2 Emergency Case?: No NPO Status NPO Status: NPO Clears >2 hours, Solids >8 hours Anesthesia Plan Resuscitation Status: Full Code Anesthesia Technique: General Anesthesia Airway Planned: Endotracheal Tube Monitors Used: Standard Monitors
--- NOTE | 2022-01-18 09:30 | BOWEL_PTH ---
PATIENT: Marc Brunson LOC: [facility] U#:[id number] AGE/SX: 76/F ROOM: RE01/18/[address]: Lida Vital MD : [id number] BED: DIS: 01/18/2022 SPEC #: [id number] RECD: 01/18/22 12:35 STATUS: MICHELEL RERobert #: [id number] WINIFRED: 01/18/22 09:[address]: Lida Vital DEPT: Surgical Specimen RECD BY: Maddie Sams ENTERED: 01/18/22 12:37 SP TYPE: Bowel OTHR DR: Zoe Fan Tissues: 1 - BIOPSY BOWEL 2 - BIOPSY BOWEL 3 - BIOPSY BOWEL 4 - BIOPSY BOWEL 5 - BIOPSY BOWEL 6 - BIOPSY BOWEL Procedures: GROSS AND MICRO LEVEL 4 Comments: [id number]
--- NOTE | 2022-01-18 10:23 | W.ANESPOSTOP ---
Postoperative Evaluation Date, Time and Location Date Performed: 01/18/22 Time Performed: 10:23 Patient Location: PACU Vital Signs Most Recent Imported Vital Signs: Most Recent Vital Signs Temp Pulse Resp BP Pulse Ox 36.5 C 77 17 119/55 L 96 01/18/22 10:10 01/18/22 10:20 01/18/22 10:20 01/18/22 10:20 01/18/22 10:20 Pain Score Most Recent Pain Score: Most Recent Pain Score Pain Level 0 01/18/22 10:20 Assessment Mental Status: Awake (Alert & Oriented to Patient Baseline) Airway and Respiratory Function: Patent airway with normal (patient baseline) respiratory exam Cardiovascular Function: Hemodynamically Stable Hydration Status: Adequately Hydrated Nausea & Vomiting: No Nausea or Vomiting Pain: Pt. Denies Any Pain Peripheral Nerve Block: Patient did not receive a nerve block Postoperative Comments:: blood sugar 66 patient asymptomatic, given shantanu kindra
== END 2022-01-18 11:42 | disposition home or self-care (01) ==
PROVIDERS: PCP Family Medicine; Visit Provider Surgery
PROC: 0DJD8ZZ Inspection of Lower Intestinal Tract, Via Natural or Artificial Opening Endoscopic (ICD-10-PCS; CPT 45378; principal; 2022-01-18 09:00)
DX: Z12.11 Encounter for screening for malignant neoplasm of colon (principal); K63.5 Polyp of colon; K62.1 Rectal polyp; Z86.010 Personal history of colon polyps; E11.9 Type 2 diabetes mellitus without complications; I10 Essential (primary) hypertension; E03.9 Hypothyroidism, unspecified
CPT/HCPCS: 45380; 88305; J1100; J2405; J2704

== ENCOUNTER 2022-04-07 08:53 | Outpatient (CLI) | payer MEDICARE, SELFPAY ==
--- NOTE | 2022-04-07 08:45 | DI.RAD_ITS ---
Exam(s) XR HIP LT COMPLETE AP PELVIS EXAM: XR HIP LT COMPLETE AP PELVIS CLINICAL HISTORY: LEFT HIP PAIN. TECHNIQUE: 2D digital imaging was performed. COMPARISON: No exams were available for comparison FINDINGS: Four views: There is no evidence of pelvic nor hip fracture. There is moderate narrowing of the left hip joint s pace. Minimal narrowing of the right hip joint space. Small osteophytes on the left femoral head no alena Findings of bladder suspension surgery IMPRESSION: Moderate degenerative changes in the left hip. DATA REPOSITORY: RADIATION DOSE DELIVERED:
== END 2022-04-07 08:54 | disposition home or self-care (01) ==
LOC: DIORS 08:54
PROVIDERS: PCP Family Medicine; Referring Provider Family Medicine; Visit Provider Student in an Organized Health Care Education/Training Program
DX: M25.552 Pain in left hip (principal); M25.852 Other specified joint disorders, left hip
CPT/HCPCS: 99213; 73502

== ENCOUNTER 2022-05-04 02:29 | Outpatient (CLI) | payer MEDICARE, SELFPAY ==
--- NOTE | 2022-05-04 07:30 | DI.RAD_ITS ---
Exam(s) RF JOINT INJECTION FLUORO GUID EXAM: RF JOINT INJECTION FLUORO GUID CLINICAL HISTORY: L HIP INJ UNDER FLUORO-NO STEROID, JUST DIAGNOSTIC,LT HIP PAIN, M25.552 TECHNIQUE: 2D and realtime digital imaging was performed. COMPARISON: No exams were available for comparison FINDINGS: Fluoroscopy was utilized by Dr. Coyne. Hard copies show left hip injection. IMPRESSION: RADIATION DOSE DELIVERED: yolanda Davidson=6.73 mGy Total DLP
--- NOTE | 2022-05-04 13:27 | OPPNE_ITS ---
Date of service: 05/04/22 Time of Service: 13:20 Procedure Note Date of procedure: 05/04/22 Procedure: Left Hip Injection with Fluoroscopic Guidance Surgeon/Proceduralist/Physician: Yannick Coyne Procedure Diagnosis: Left Hip Osteoarthritis Procedure Indications: Marc has had persistent pain of the LEFT hip and groin. Noninvasive measures have been tried. To serve as diagnostic, an injection under fluoroscopy was recommended. I had discussed the risks of the procedure and the patient elected to proceed. Procedure Description: Marc was greeted in the flouroscopy room. The correct side was identified and the consent was reviewed with the patient and signed. The patient was then placed in the supine position on the fluoroscopy table. The LEFT hip was then prepped with Chloraprep. The anterolateral injection starting point was identiifed by bony landmarks and fluoroscopy. The skin and soft tissue in the tract of the injection was anesthetized with 1% Lidocaine. A spinal needle was then inserted deep into the hip joint at the level of the lateral femoral neck under fluoroscopic guidance. A small amount of Omnipaque solution was injected to confirm intraarticular placement. Once confirmed, the hip was injected with 8cc of 0.5% Bupivicaine. A bandaid was placed on the injection site. The madi ent tolerated the procedure well.
[2022-05-04] MEDS: Bupivacaine 0.5% Pres-Free 10 ML VIAL 8 ML IJ (14:29)
== END 2022-05-04 02:49 ==
LOC: DI 02:30
PROVIDERS: PCP Family Medicine; Visit Provider Student in an Organized Health Care Education/Training Program
DX: M25.552 Pain in left hip (principal)
CPT/HCPCS: 20610; 77002

== ENCOUNTER 2022-05-22 02:51 | Outpatient (CLI) | payer MEDICARE, SELFPAY ==
[2022-05-22 14:00] LABS: HCT 37.9 % (36.0-46.0); HGB 12.7 g/dL (11.2-15.7); MCH 32.6 pg (27.0-33.0); MCHC 33.5 % (32.0-36.0); MCV 97 fL (80-95); MPV 9.5 fL (8.0-11.0); Platelet Count 186 10^3/uL (130-400); RBC 3.89 10^6/uL (3.93-5.22); RDW 12.1 % (11.7-14.6); RDW-SD 43.2 fL; WBC 5.83 10^3/uL (4.4-10.8)
[2022-05-22 14:26] LABS: Anion Gap 6.5 mmol/L (3-11); BUN 21 mg/dL (7-18); CO2 30.5 mmol/L (21.0-32.0); Calcium 9.1 mg/dL (8.5-10.1); Chloride 104 mmol/L (98-107); Estimated GFR 58.02 (mL/min/1.73m2); Glucose 112 mg/dL (74-106); Potassium 4.1 mmol/L (3.5-5.1); Sodium 141 mmol/L (136-145)
== END 2022-05-22 02:52 | disposition home or self-care (01) ==
LOC: LBO 02:51
PROVIDERS: PCP Family Medicine; Visit Provider Student in an Organized Health Care Education/Training Program
DX: M25.852 Other specified joint disorders, left hip (principal); Z01.818 Encounter for other preprocedural examination
CPT/HCPCS: 36415; 80048; 85027

== ENCOUNTER 2022-05-30 05:54 | Day surgery (SDC) | payer MEDICARE, SELFPAY ==
[2022-05-30] VITALS (7 sets, daily range): BP systolic 89–112; BP diastolic 42–71; PULSE 65–83; RESP 13–17; TEMP 36–36.7; O2SAT 97–100; BMI 24.7
[2022-05-30] MEDS: Acetaminophen 500 MG TAB 1000 MG PO (06:46)
[2022-05-30] MEDS: Celecoxib 200 MG CAP 400 MG PO (06:46)
--- NOTE | 2022-05-30 06:50 | W.ANESPRE ---
General Info Date of Service Date Performed: 05/30/22 Height: 5 ft 10 in Weight: 78.4 kg Body Mass Index (BMI): 24.7 Surgical Procedure: Operation Date: 05/30/22 07:50 Proposed Procedure Side Surgeon p Hip Total Hip Anterior, Corail Short Neck () Left Yannick Coyne MD Meds Allergies and Home Medications Allergies Allergy/AdvReac Type Severity Reaction Status Date / Time No Known Allergies Allergy Verified 05/24/22 11:51 Home Medication Medication Instructions Recorded citalopram 10 mg tablet (Celexa) 20 mg PO DAILY 12/01/16 glipizide 10 mg tablet 10 mg PO DAILY 12/01/16 insulin glargine 100 unit/mL 33 units SQ HS 12/01/16 subcutaneous solution (Lantus U-100 Insulin) levothyroxine 100 mcg tablet 100 mcg PO DAILY 12/01/16 metformin 1,000 mg tablet 1,000 mg PO DAILY 12/01/16 multivitamin with minerals (DAILY 1 ea PO DAILY 12/01/16 VITAMIN FORMULA-MINERALS tablet) losartan 100 mg tablet 100 mg PO DAILY 09/22/21 cyanocobalamin (vitamin B-12) 1,000 mcg PO DAILY 09/23/21 1,000 mcg capsule polyethylene glycol 3350 17 gram 255 g PO DAILY #15 ea 12/07/21 oral powder packet omeprazole 20 mg capsule,delayed 20 mg PO DAILY 01/17/22 release sitagliptin phosphate 100 mg 100 mg PO DAILY 01/18/22 tablet (Januvia) acetaminophen 500 mg tablet 500 mg PO Q6H PRN pain #60 tabs 05/30/22 aspirin 81 mg tablet,delayed 81 mg PO BID 30 days #60 tabs 05/30/22 release celecoxib 200 mg capsule (Celebrex) 200 mg PO BID #30 caps 05/30/22 dexamethasone 4 mg tablet 4 mg PO DAILY #2 tabs 05/30/22 docusate sodium 100 mg capsule 100 mg PO BID #30 caps 05/30/22 (Colace) famotidine 20 mg tablet 20 mg PO DAILY 05/30/22 oxycodone 5 mg tablet 5 mg PO Q6H PRN severe 05/30/22 post-operative pain #12 tabs Current Visit Medications: Current Medications Generic Name Dose Route Start Last Admin Trade Name Freq PRN Reason Stop Dose Admin Acetaminophen 1,000 mg 12/27/22 06:00 05/30/22 06:46 Acetaminophen 500 Mg Tab PO 05/30/22 18:00 1,000 mg PREOP JEFFERY Administration Celecoxib 400 mg 05/30/22 06:00 05/30/22 06:46 Celecoxib 200 Mg Cap PO 05/30/22 18:00 400 mg PREOP JEFFERY Administration Tranexamic Acid 1,000 mg/ 60 mls @ 360 mls/hr 05/30/22 06:00 Sodium Chloride IV 05/30/22 23:59 PREOP JEFFERY Ringer's Solution 1,000 mls @ 80 mls/hr 05/30/22 06:00 IV 06/26/22 23:59 INFUSION JEFFERY Cefazolin Sodium/Dextrose 2 gm in 50 mls @ 100 mls/hr 05/30/22 06:00 Ancef Duplex IVPB 06/26/22 23:59 PREOP JEFFERY IV Miscellaneous Supplies 1 each 05/30/22 06:00 Iv Access IV 06/26/22 23:59 DIRECTED JEFFERY Sodium Chloride 0 ml 05/30/22 06:00 Normal Saline Flush 10 Ml Syr IV 06/26/22 23:59 PRN PRN Sodium Chloride 0 ml 05/30/22 06:00 Normal Saline 10 Ml Vial IJ 06/26/22 23:59 DIRECTED PRN Sterile Water 0 ml 05/30/22 06:00 Water,Injection,Sterile 10 Ml Vial IJ 06/26/22 23:59 DIRECTED PRN PFSH Active Problems Active Problems: Problem Status Onset Code 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 Confirmed at pre-op admission 05/30/22 . Surgical History Surgical History Abdominal hysterectomy Colonoscopy - IV Sedation 2006 Colonoscopy - MAC (12/26/16) 01/2022 Hx of appendectomy Oophrectomy, Both Tonsillectomy and adenoidectomy Tobacco Smoking/Tobacco Use Status: Former Tobacco Use Alcohol Alcohol Intake: current Alcohol intake frequency: 0-2 drinks per day Alcohol type: wine and hard liquor Substance Use Substance use: Never Substance use type: does not use Vital Signs and Lab Results Vital Signs Most Recent Vital Signs in EMR: Most Recent Vital Signs Temp Pulse Resp BP Pulse Ox 36.7 C 83 16 112/71 97 05/30/22 06:16 05/30/22 06:16 05/30/22 06:16 05/30/22 06:16 05/30/22 06:16 Point of Care Results Point of Care Results: Finger Stick Blood Glucose 58 05/30/22 06:38 Lab Results Blood Type / Crossmatch: No Data to Display Complete Blood Count: White Blood Count 5.83 10^3/uL (4.4-10.8) 05/22/22 13:45 Red Blood Count 3.89 10^6/uL (3.93-5.22) L 05/22/22 13:45 Hemoglobin 12.7 g/dL (11.2-15.7) 05/22/22 13:45 Hematocrit 37.9 % (36.0-46.0) 05/22/22 13:45 Platelet Count 186 10^3/uL (130-400) 05/22/22 13:45 Complete Metabolic Panel: Sodium 141 mmol/L (136-145) 05/22/22 13:45 Potassium 4.1 mmol/L (3.5-5.1) 05/22/22 13:45 Chloride 104 mmol/L (98-107) 05/22/22 13:45 Carbon Dioxide 30.5 mmol/L (21.0-32.0) 05/22/22 13:45 BUN 21 mg/dL (7-18) H 05/22/22 13:45 Creatinine 1.0 mg/dL (0.55-1.02) 05/22/22 13:45 Est GFR (CKD-EPI 2020) 58.02 (mL/min/1.73m2) 05/22/22 13:45 Calcium 9.1 mg/dL (8.5-10.1) 05/22/22 13:45 Glucose 112 mg/dL (74-106) H 05/22/22 13:45 Hemoglobin A1c 6.4 % (4.5-5.7) H 05/22/22 15:44 Liver Function Panel: No Data to Display Coagulation Panel: No Data to Display Cardiac Panel: No Data to Display Arterial Blood Gas: No Data to Display Venous Blood Gas: No Data to Display Pancreas Panel: No Data to Display Thyroid Panel: No Data to Display Infectious Disease: No Data to Display Blood Cultures: No Data to Display Toxicology Panel: No Data to Display Anesthesia Assessment and Plan Anesthesia History Personal History: Other (Bile emesis during colonoscopy 11/2021. ) Family History: No Family History of Anesthesia Complications Exercise Tolerance Exercise Tolerance: Metabolic Equivalents>4 Pertinent Negatives Pertinent Negatives: No Symptoms of GERD, No Major Cardiovascular Symptoms or Complaints, No Major Pulmonary Symptoms or Complaints and No History of CVA/TIA Cardiac & Pulmonary Exam Cardiac Exam: Normal S1/S2 Heart Sounds Pulmonary Exam: Clear Bilateral Breath Sounds Implantable Cardiac Device Does patient have a Pacemaker or an ICD?: No Airway Exam Known Difficult Airway: No Mallampati Class: 3 Mouth Opening: Normal (> 3cm) Thyromental Distance: Greater than 3 cm Neck Range of Motion: Full ROM Neck Circumference: Normal Teeth Condition: Normal Dentition ASA Classification ASA Score: ASA 2 Emergency Case?: No NPO Status NPO Status: NPO Clears >2 hours, Solids >8 hours Anesthesia Plan Resuscitation Status: Full Code Anesthesia Technique: Spinal Anesthesia Airway Planned: Natural Airway Monitors Used: Standard Monitors Preoperative Comments:: Gluc check 56 at 0640. Sips of apple juice with prep meds. Bile emesis with sedation during colonoscopy November 2021. Unable to complete procedure. Repeated in January with GETA without complications. Plan, spinal with minimal sedation, GETA backup.
[2022-05-30] MEDS: Lactated Ringers 1,000 ML 80 ML IV (06:58)
--- NOTE | 2022-05-30 07:00 | DI.RAD_ITS ---
Exam(s) XR HIP LT IN OR EXAM: XR HIP LT IN OR CLINICAL HISTORY: FEMOROACETABULAR IMPINGEMENT LEFT HIP. TECHNIQUE: 2D digital imaging was performed. COMPARISON: No exams were available for comparison FINDINGS: Fluoroscopy was provided during hip arthroplasty. See procedure report for details. Radiation exposure index: yolanda Davidson= 3.2099mGy IMPRESSION: DATA REPOSITORY: RADIATION DOSE DELIVERED:
--- NOTE | 2022-05-30 07:17 | DSE_ITS ---
Date of service: 05/30/22 Time of Service: 11:24 DS: Diagnosis Discharge Diagnosis (1) Femoroacetabular impingement of left hip: Status: Acute Discharge Plan Disposition Patient Disposition: Home Condition: Good Discharge Details Reason For Visit: Left hip DJD Attending Provider: Yannick Coyne Primary Care Provider: Zoe Fan Home Meds and New Rx's Prescriptions: New acetaminophen 500 mg tablet 500 mg PO Q6H PRN (Reason: pain) Qty: 60 2RF aspirin 81 mg tablet,delayed release (DR/EC) 81 mg PO BID 30 Days Qty: 60 0RF celecoxib [Celebrex] 200 mg capsule 200 mg PO BID Qty: 30 0RF docusate sodium [Colace] 100 mg capsule 100 mg PO BID Qty: 30 0RF dexamethasone 4 mg tablet 4 mg PO DAILY Qty: 2 0RF Rx Instructions: Take one tablet once daily for two days oxycodone 5 mg tablet 5 mg PO Q6H PRN (Reason: severe post-operative pain) Qty: 12 0RF Rx Instructions: Take one tablet up to every 6 hours as needed for severe pain Continued cyanocobalamin (vitamin B-12) 1,000 mcg capsule 1,000 mcg PO DAILY insulin glargine [Lantus U-100 Insulin] 100 UNIT/1 ML solution 33 units SQ HS citalopram [Celexa] 10 MG tablet 20 mg PO DAILY glipizide 10 MG tablet 10 mg PO DAILY levothyroxine 100 MCG tablet 100 mcg PO DAILY metformin 1,000 MG tablet 1,000 mg PO DAILY DAILY VITAMIN FORMULA-MINERALS 1 EACH tablet 1 ea PO DAILY losartan 100 mg tablet 100 mg PO DAILY polyethylene glycol 3350 17 gram powder in packet 255 g PO DAILY Qty: 15 0RF Rx Instructions: Mix 255 gm in 64 oz of gatorade or juice. Drink as directed omeprazole 20 mg Capsule,Delayed Release(Dr/Ec) 20 mg PO DAILY Januvia 100 mg Tablet 100 mg PO DAILY famotidine 20 mg Tablet 20 mg PO DAILY Discontinued aspirin 81 MG tablet,chewable 81 mg PO DAILY ibuprofen 600 mg tablet 1,000 mg PO TID Label Comments: pt. reports taking three times a day Discharge Instructions Additional Instructions: Total Hip Discharge Instructions Activity: The most important activity is to walk. You should try to take short walks a few times a day. You have no restrictions on movement or positioning, but do not try to force what you do. You will find some stiffness and weakness with hip flexion (lifting your knee). Do not try to strengthen this too early, continue to practice walking and stairs and this will come. - Outpatient physical therapy can be helpful to help return you to a normal gait and improve your flexibility and strength. This can start around 2 weeks. For some patients, it?s not necessary. Usually this is determined at the time of discharge or at the first post-operative visit. - You should wear the WENCESLAO hose on both legs for 2 weeks. Dressing: Keep the surgical dressing in place for at least one week. After the first week it may be removed and replace with light gauze and tape or nothing. It may get wet after 3 days but avoid soaking the dressing. If it gets wet, just lightly pat dry. It is important to always keep some gauze between skin folds, especially when you are sitting. Spend some time with the wound exposed when you are lying flat as the incision does wrinkle onto itself. Medications: - You should take Tylenol and an anti-inflammatory Celebrex as your primary pain control medications. If the Celebrex is too expensive or not covered, please call the office for another alternative (Advil/Ibuprofen or Naproxen/Aleve). - You have been prescribed a stronger pain medication Oxycodone for breakthrough pain, take as needed as prescribed. - You have also been prescribed a stomach acid reduction agent Pantoprozole to help reduce stomach acid and reflux. - You have also been prescribed Decadron to help with post-operative nausea and pain. You will take this for two days starting tomorrow. - You will be taking Aspirin 81mg twice a day for DVT prevention unless instructed otherwise. - If you have constipation you should take Colace (which was prescribed) or Miralax (which is available [id number]). It takes most people 3-4 days to have a bowel movement. Follow-up: 2 weeks If you have any acute concerns or questions, please do not hesitate to contact the office at [phone]. You may contact Dr. Coyne with any questions after hours through the hospital at [phone] or on his cell phone at [phone]. Stand Alone Forms: Anesthesia Discharge Inst., Press Ganey (DSU) Referrals: Yannick Coyne MD [ [facility] STAFF PHYSICIAN] - Equipment/Supplies: Walker Activity:: Elevate Remove Dressings/Wound Care:: Do Not Remove Shower/Bathe:: Cover Diet:: As Tolerated Discharge Orders Discharge Orders: Discharge Order (Routine); Ordered 05/30/22 Ordered By: Yannick Coyne DS: Summary Time Spent with Patient providing and/or coordinating discharge services: Less than 30 minutes Status at Discharge Functional status at discharge: uses cane/walker Overall status at discharge: patient is progressing back to baseline Mental Status: mental status grossly normal Speech and Movement: speech and movement normal Mood: congruent mood Affect: normal affect Exam Psych Mental Status: mental status grossly normal Speech and Movement: speech and movement normal Mood: congruent mood Affect: normal affect DS: Data Vitals/I&O Vitals and I&O: Vital Signs Temperature 98.1 F 05/30/22 06:16 Pulse 83 05/30/22 06:16 Pulse Rhythm Regular 05/30/22 06:16 Respiratory Rate 16 05/30/22 06:16 Respiratory Depth Normal 05/30/22 06:16 Blood Pressure 112/71 05/30/22 06:16 Pulse Oximetry 97 05/30/22 06:16 Oxygen Delivery Method Room Air 05/30/22 06:16 Oxygen Flow Rate 0 05/30/22 06:16 Intake & Output 05/29/22 05/29/22 05/30/22 11:59 23:59 11:59 Weight 172 lb 13.478 oz 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 Tubular adenoma of colon (12/26/16) Surgical History Abdominal hysterectomy Colonoscopy - IV Sedation 2006 Colonoscopy - MAC (12/26/16) 01/2022 Hx of appendectomy Oophrectomy, Both Tonsillectomy and adenoidectomy Family History Mother CHF (congestive heart failure) Father CHF (congestive heart failure) Colon polyps Social History Smoking/Tobacco Use Status: Former Tobacco Use Quit Date: 06/04/81 Smoking risk assessment performed?: Yes Alcohol Intake: current Alcohol Intake frequency: 0-2 drinks per day Alcohol type: wine and hard liquor Drug use: Never Substance use type: does not use Do you feel safe at home: Yes Do you feel safe in your relationship?: Yes
[2022-05-30] MEDS: ceFAZolin 2 GM/50 ML BAG IVPB (07:34)
--- NOTE | 2022-05-30 11:08 | PT.INIE ---
Date of service: 05/30/22 Time of Service: 11:08 PT Notes Visit Reasons: Left hip DJD Physical Therapy Day Surgery Initial Evaluation Date: 05/30/2022 Referring Doctor: KASHMIR Mora PT Orders: PT CONSULT: S/P Ortho surgery Precautions: WBAT on the L LE with AD. Patient Profile/Admitting Diagnosis: Radha is a 76-year-old female with degenerative joint disease of the left knee with femoral acetabular impingement syndrome status post left total hip arthroplasty on postoperative day 0. PMHX: Medical History?(Updated 05/22/22 @ 14:57 by Laura Hammond) Depression Diabetes Hypertension Hypothyroid 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 Tubular adenoma of colon (12/26/16) Surgical History? Abdominal hysterectomy Colonoscopy - IV Sedation 2006 Colonoscopy - MAC (12/26/16) 01/2022 Hx of appendectomy Oophrectomy, Both Tonsillectomy and adenoidectomy Social History/Home Situation: Lives in a private home with her with rails wide apart. There is another set of stairs leading to the second floor of her house where her bedroom is. Notable aspects of ADLs prior to surgery. Equipment Owned/DME: FWW Subjective: Reports 2/10 pain in the left hip with weight bearing. Denies headache, chest pain, and lightheadedness throughout session. Objective: General Observation: Supine in stretcher. In NAD. Mepilex Ag over surgical incision. TEDS to B legs. Mental Status: Alert and oriented x 4 Pain: 2/10 pain in R hip with WB ROM: Right Lower Extremity: Hip flexion WFL. Hip abduction WFL. Knee flexion WFL. Ankle dorsiflexion WFL. Ankle plantarflexion WFL. Left Lower Extremity: Hip flexion WFL. Hip abduction WFL. Knee flexion WFL. Ankle dorsiflexion WFL. Ankle plantarflexion WFL. Strength: Right Lower Extremity: Hip flexors 5/5. Hip abductors 5/5. Knee flexors 5/5. Knee extensors 5/5. Ankle dorsiflexors 5/5. Ankle plantarflexors 5/5. Left Lower Extremity:Hip flexors 4/5. Hip abductors 4/5. Knee flexors 5/5. Knee extensors 4/5. Ankle dorsiflexors 5/5. Ankle plantarflexors 5/5. Sensation: Intact as to pain and light pressure in B LE Bed Mobility/Transfers: Supine to sit supervision Sit to stand contact guard assist Stand to sit stand by assist Bed to chair stand by assist Gait: 150 feet using FWW that has been adjusted to her height, stand by assist. step through gait pattern with 2/10 pain in the L hip. No LOB. No shortness of breath. Balance: Static Sitting: Normal Dynamic Sitting: Normal Static Standing: Fair Dynamic Standing: Fair Special Tests: Mobility Limitations Standardized Measure [facility] AM-PAC 6 clicks Basic Mobility Inpatient Short Form: Raw Score: 24 CMS Score: 0% deficit Informed Consent/Education: Patient instructed in purpose of PT consult. Packet containing BUDDY exercise protocol has been given to patient. Education and training on initial set of exercises that can be done at home have been completed with patient. Assessment: Patient requires the use of a FWW for all mobility ADL performance to reduce fall risk and maixmize independence. Patient presents with clinical signs and symptoms consistent with current/admitting diagnoses that have resulted to mobility limitations, gait instability, generalized weakness, and impairment of motor control as demonstrated by the following impairment level findings: 1. Decreased strength to left hip major muscle groups 2. Impaired standing balance Impairments are contributing to the following functional limitations: 1. Inability to safely ambulate without assistive device 2. Increase completion time for mobility ADL performance 3. Increased fall risk Patient is assessed as a 78537 moderate complexity based on the following: History: 76-year-old female with impairment level findings, functional limitations, and past medical history as indicated above Examination: Demonstrable impairment in strength, balance, and mobility level with underlying impairments and functional limitations as documented above Presentation: Evolving Decision Makin moderate Goals: N/A. PT evaluation and 1-2 treatment sessions only for functional mobility training using recommended AD and for HEP instruction. Plan of Care/Treatment Plan: N/A. PT evaluation and 1-2 treatment session only for functional mobility training using recommended AD and for HEP instruction. DISCHARGE RECOMMENDATIONS: [] Home with no services [] [] Home with services [specify] [X] Home with outpatient PT. Home when medically cleared by orthopedic surgeon. Recommend outpatient PT services in order to optimize functional mobility outcomes and facilitate return to independent community ambulation without an assistive device. [] SNF for continued rehabilitation [] [] Care Home Care [] [] SNF versus LTC based on ability to participate and progress [] TREATMENT CODE/TIME: 54493 x 20 minutes, 47768 x 16 minutes beginning at 11:08 AM. Thank you for the opportunity to participate in the care of this patient. Ethel Diaz PT, DPT, CLT [facility] [place], [place]
--- NOTE | 2022-05-30 11:34 | W.ANESPOSTOP ---
Postoperative Evaluation Date, Time and Location Date Performed: 05/30/22 Time Performed: 11:34 Patient Location: Day Surgery Unit Vital Signs Most Recent Imported Vital Signs: Most Recent Vital Signs Temp Pulse Resp BP Pulse Ox 36.1 C L 65 16 109/62 99 05/30/22 10:49 05/30/22 10:49 05/30/22 10:49 05/30/22 10:49 05/30/22 10:49 Pain Score Most Recent Pain Score: Most Recent Pain Score Pain Level 0 05/30/22 10:49 Assessment Mental Status: Awake (Alert & Oriented to Patient Baseline) Airway and Respiratory Function: Patent airway with normal (patient baseline) respiratory exam Cardiovascular Function: Hemodynamically Stable Hydration Status: Adequately Hydrated Nausea & Vomiting: No Nausea or Vomiting Pain: Pain is tolerable per patient (2/10) Peripheral Nerve Block: Patient did not receive a nerve block
--- NOTE | 2022-05-30 14:17 | ROE_ITS ---
Date of service: 05/30/22 Time of Service: 09:00 Operative Note Operative Note DATE OF PROCEDURE: 05/30/22 PRE-OP DIAGNOSIS: Left Hip Osteoarthritis POST-OP DIAGNOSIS: same PROCEDURE: Left Anterior Total Hip Arthroplasty with Intraoperative Navigation SURGEON: Yannick Coyne LOSS PREVENTION ANALYST: Laura Hammond ANESTHESIA TYPE: Spinal Refer to Anesthesia Record ESTIMATED BLOOD LOSS: 100 PATHOLOGY: none sent TOURNIQUET TIME: 0 COMPLICATIONS: None Patient was transported to: PACU Patient's condition: stable Implants: 1. Depuy [place] Acetabular Component, 52mm 2. Depuy Acetabular Liner, [id number] 3. Depuy Corail Standard Short Neck Collared Femoral Stem, Size 13 4. Depuy Altrx Ceramic Femoral Head, Size 36+1.5mm Indications: I have seen Marc in clinic for symptoms of hip arthritis, confirmed with radiographic findings. She has exhausted nonoperative methods and was having significant limitations in daily function and desired better function and less pain. I discussed the technical details of a hip replacement. I explained the risks of the procedure to include, but not limited to, bleeding, infection, pain, stiffness, fracture, damage to nerves and vessels, damage to muscles and tendons, loosening, instability, leg length inequality, need for repeat procedure, blood clot and cardiopulmonary demise. Despite these risks, Marc elected to proceed. Findings: There was significant signs of arthritis throughout the hip with osteophytes and areas of cartilage loss throughout. Procedure Description: Marc was greeted in the preoperative holding area where the correct side was identified and marked. The consent was reviewed with the patient and signed. The history and physical was updated. All questions were answered. She was taken back to the operating room. A spinal anesthestic was then administered. The feet were wrapped with cast padding and Coban and then placed into the boot liners and then into the boots. Care was taken to protect the skin and make sure the heels were fully down and the boots were stable. The patient was then positioned onto the HANA table. Both legs were held in a neutral position. SCDs were applied. The patient was then slid down onto a peroneal post. Prophylactic antibiotics in the form of Cefazolin were administered. 1g of Tranxemic Acid was given intravenously within 30 minutes of incision. The left leg was then prepped with Chloraprep and draped in a standard fashion. A second prep with Chloraprep was performed prior to placement of a shower-curtain type drape with Iodine impregnated skin protection. A timeout to confirm correct identity, side and site, procedure, allergies, anesthesia, and medical concerns was performed. An obliquely oriented incision was made starting lateral to the ASIS and running distal over the Tensor Fascia Melissa (TFL) muscle belly toward the fibular head, approximately 10cm. The skin and soft tissue was dissected sharply, through Zechariah?s fascia, and to the fascia of the TFL. With the fascia and superior border of the IT band identified, the fascia was incised with a new knife just above any perforators from the IT band. The TFL muscle belly was bluntly dissected away from the fascia and moved laterally. The fat between TFL and rectus was identified to ensure the dissection was not within the TFL. Blunt dissection created space between abductors and the capsule and retractor was placed over the lateral femoral neck. The fibers of the rectus femoris tendon were identified and these were freed from the anterior capsule. A second cobra retractor was placed around the medial femoral neck. The TFL was further retracted laterally to show the deep fascia. Careful dissection through this layer identified three main crossing vessels of the lateral femoral circumflex. These were cauterized in multiple locations and then cut without any noticeable bleeding. The TFL was further released bluntly from the deep fascia to expose anterior hip capsule and fat The Thuan orthopaedic retractor was then placed beneath the TFL and against sartorius and medial soft tissues to protect and retract the soft tissues. A T-capsulotomy was then performed starting at the superior lateral acetabulum and moving distally to the intertrochanteric ridge. These capsular flaps were tagged with a No. 1 Ethibond and elevated from within. The capsular flaps were released to the shoulder of the lateral neck and to the lesser trochanter to give excellent visualization of the proximal femur. A neck osteotomy was performed using an oscillating saw based on preoperative templates. This cut started in the shoulder and of the lateral neck and exited medially. The saw was at all times directed medially to avoid injury to the greater trochanter. Gross traction was applied to the leg and the osteotomy opened. The femoral head was removed with a corkscrew, making sure to protect the TFL on its exit. Traction was released after head removal. This was measured on the back table to determine the starting reamer size. Portions of the rectus obscuring visualization were minimally elevated off the superior acetabulum. An anterior retractor was placed over the anterior wall between capsule and labrum and attached to the Gripper retraction system. The femur was rotated to 90 degrees and medial capsule was fully released until the lesser trochanter was palpable and visible; the femur was returned to 30 degrees. A posterior retractor was placed similarly between capsule and labrum. This provided excellent visualization. The contents of the cotyloid fossa were removed with electrocautery and the labrum was removed with a knife. There was a notable floor osteophyte. There was significant chondromalacia of the super ior acetabulum. Acetabular reaming began with a 48mm reamer. This first reaming was directed anterior to posterior and medial to get down to the true floor. This was inspected and reamed until the true floor was reached. The anterior retractor was then released and entry and exit was provided by traction on the capsular flaps. I then reamed sequentially up to a 52mm reamer where good fit was obtained. The larger reamers were oriented based on anatomical reference of the anterior and lateral lake to ensure proper abduction and anteversion. Positioning and size was confirmed with the fluoroscopy. A 52mm Depuy [place] acetabular component was selected. The acetabulum was reamed around the periphery with the selected acetabular size to prevent a rim fit. The deep tissues were irrigated. The acetabular component was then impacted in a position of about 40-45 degrees of abduction and 15-20 degrees of anteversion, using the patient?s anatomy as the ultimate landmark. Fluoroscopy was used to confirm this. There was excellent bankruptcy assistant of the acetabular component and the inserting handle was removed. The acetabular liner, Depuy 39x88al polyethylene liner, was inserted and lined up with the tines of the acetabular component. There was no soft tissue interposition. The liner was then impacted into position and confirmed to be well-seated. A portion of the ronald-articular cocktail was then injected around the acetabulum into the capsule and periosteum. This cocktail consisted of 123mg of Ropivacaine, 0.25mg of Epinephrine, 0.04mg of Clonidine, and 15mg of Ketorolac, diluted to 50cc. The leg was rotated to 120 degrees. Any remaining medial capsule was released until the lesser trochanter was easily palpable. A retractor was placed medially. The lateral capsule was further released into the shoulder to allow access to the greater trochanter. A Barger retractor was placed over the greater trochanter which allowed the trochanter to flip in front of the capsule for excellent exposure. The leg was brought down into maximal extension and 20 degrees of adduction while ensuring there was no impingement on the acetabulum. Any remnant capsule within the trochanter was released. Piriformis and obturator externis were identified and protected. There was excellent access to the proximal femur. The lateral neck remnant was removed with a rongeur. A blunt canal probe was used to identify the canal and trajectory for later broaching. A box osteotome initiated the broach course. A small curved rasp and a curved curette were used to work laterally. Broaching then began with a size 8 Corail broach. This was inserted manually around the trochanter and into the canal before mallet blows. The broach was seated to a few millimeters below the cut level based on the neck cut and the preoperative template. Sequential broaching was continued with the LendLayerse pneumatic broaching device until a tight fit was obtained with good rotational control of the femur. A trial short neck was inserted along with a +1.5 trial head. The leg was brought out of extension and adduction and then reduced with traction and internal rotation. The leg was stable anteriorly in a position of 30 degrees of extension and 90 degrees of external rotation. Fluoroscopy was used to ensure there was no fracture and the stem was seated well. Leg lengths were checked with an AP pelvis and pelvic reference points. Collections navigation system was used to confirm appropriate positioning and leg length and offset. Once content with the desired offset and leg lengths, the leg was brought back into extension, external rotation and adduction. The periosteum and surrounding tissue was injected with remaining portion of the ronald-articular cocktail. The proximal femur was irrigated as well as the deep tissues. The Depuy Corail standard short neck collared stem, size 13, was then manually inserted into the proximal femur making sure to control rotation. It was then malleted into position with light blows, giving breaks to allow bone expansion and decrease risk of fracture. The selected Depuy Altrx Ceramic Head, size 36+1.5mm, was then placed onto the clean and dry trunnion and secured with impaction onto the tapered fit. The leg was brought back out of extension and adduction and reduced with traction and internal rotation. Stability was confirmed with no shuck at 90 degrees of external rotation and 30 degrees of extension. No impingement through range of motion arc. Final x-ray images were obtained with fluoroscopy to confirm adequate positioning and no intraoperative fracture. The deep tissues were thoroughly irrigated with Surgiphor, betadine solution. This was allowed to sit in the wound for 3 minutes before being thoroughly ir rigated out with normal saline. The capsule was then reapproximated with the previously placed Ethibond sutures. The TFL fascia was finally closed with a No. 2 Stratafix, barbed suture. Deep tissues were then reapproximated with 0 Vicryl and a running 2-0 Vicryl. The skin was closed with a running 4-0 Monocryl in a subcuticular fashion. This was reinforced with skin glue. A Mepilex silver dressing was applied. At the end of the case, all counts were correct. Marc was transferred to the hospital bed without difficulty and suffering no apparent complication. Marc has a good prognosis. Physical therapy will start today and without restrictions, weight-bearing as tolerated. Aspirin 81mg BID will be used for DVT prophylaxis.
--- NOTE | 2022-05-30 15:45 | W.ORTHOCONSU ---
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 Tubular adenoma of colon (12/26/16) Surgical History Abdominal hysterectomy Colonoscopy - IV Sedation 2006 Colonoscopy - MAC (12/26/16) 01/2022 Hx of appendectomy Oophrectomy, Both Tonsillectomy and adenoidectomy Family History Mother CHF (congestive heart failure) Father CHF (congestive heart failure) Colon polyps Social History Smoking/Tobacco Use Status: Former Tobacco Use Quit Date: 06/04/81 Smoking risk assessment performed?: Yes Alcohol Intake: current Alcohol Intake frequency: 0-2 drinks per day Alcohol type: wine and hard liquor Drug use: Never Substance use type: does not use Do you feel safe at home: Yes Do you feel safe in your relationship?: Yes Results Last Vital Signs Temp 97.0 F L 05/30/22 10:49 Pulse 65 05/30/22 10:49 Resp 16 05/30/22 10:49 BP 109/62 05/30/22 10:49 Pulse Ox 99 05/30/22 10:49
== END 2022-05-30 12:23 | disposition home or self-care (01) ==
PROVIDERS: PCP Family Medicine; Visit Provider Student in an Organized Health Care Education/Training Program
PROC: (CPT 27130; principal; 2022-05-30 07:30)
DX: M16.12 Unilateral primary osteoarthritis, left hip (principal); E11.9 Type 2 diabetes mellitus without complications; I10 Essential (primary) hypertension; E03.9 Hypothyroidism, unspecified
CPT/HCPCS: 20985; 27130; C1776; 97162; 97530; 73501; J0690; J2250; J2405

== ENCOUNTER 2022-06-12 10:30 | Outpatient (CLI) | payer MEDICARE, SELFPAY ==
--- NOTE | 2022-06-12 13:00 | DI.RAD_ITS ---
Exam(s) XR HIP LT COMPLETE AP PELVIS EXAM: XR HIP LT COMPLETE AP PELVIS INDICATION: 1st post op L BUDDY. COMPARISON: CR XR HIP LT COMPLETE AP PELVIS from 04/07/2022 RF RF JOINT INJECTION FLUORO GUID from 05/04/2022 XA XR HIP LT IN OR from 05/30/2022 TECHNIQUE: 2D digital imaging was performed. Three views. FINDINGS: There is a left hip prosthesis which shows satisfactory position. No adjacent bony lucencies. Right hip unremarkable. DATA REPOSITORY: RADIATION DOSE DELIVERED:
== END 2022-06-12 10:31 | disposition home or self-care (01) ==
LOC: DIORS 06-13 08:35
PROVIDERS: PCP Family Medicine; Visit Provider Student in an Organized Health Care Education/Training Program
DX: Z96.642 Presence of left artificial hip joint (principal); Z47.1 Aftercare following joint replacement surgery
CPT/HCPCS: 73502

== ENCOUNTER → 2022-07-10 10:12 | Outpatient (BNVA) | payer MEDICARE, SELFPAY | PROVIDERS: PCP Family Medicine; Referring Provider Family Medicine; Visit Provider Student in an Organized Health Care Education/Training Program | DX: Z47.1 Aftercare following joint replacement surgery (principal); Z96.642 Presence of left artificial hip joint ==

== ENCOUNTER 2022-08-15 09:05 | Outpatient (REF) | payer MEDICARE, SELFPAY ==
[2022-08-15 15:04] LABS: ALT 21 U/L (14-59); AST 13 U/L (15-37); Albumin 3.7 g/dL (3.4-5.0); Alkaline Phosphatase 78 U/L (46-116); Anion Gap 7.8 mmol/L (3-11); BUN 24 mg/dL (7-18); Bilirubin, Total 0.5 mg/dL (0.2-1.0); CO2 28.2 mmol/L (21.0-32.0); CREATININE 0.9 mg/dL (0.55-1.02); Calcium 8.8 mg/dL (8.5-10.1); Calculated LDL 88 mg/dL (<100); Chloride 108 mmol/L (98-107); Cholesterol 181 mg/dL (<200); Estimated GFR 65.84 (mL/min/1.73m2); Glucose 86 mg/dL (74-106); HDL Cholesterol 79 mg/dL (40-60); Potassium 4.9 mmol/L (3.5-5.1); Sodium 144 mmol/L (136-145); Total Protein 6.2 g/dL (6.4-8.2); Triglyceride 72 mg/dL (<150)
[2022-08-15 15:25] LABS: Vitamin D 25 Total 41.1 ng/mL (30-100)
== END 2022-08-15 09:06 | disposition home or self-care (01) ==
LOC: NCHCN 09:05
PROVIDERS: PCP Family Medicine; Visit Provider Family Medicine
DX: I10 Essential (primary) hypertension (principal); E11.9 Type 2 diabetes mellitus without complications; E03.9 Hypothyroidism, unspecified; Z79.899 Other long term (current) drug therapy
CPT/HCPCS: 80053; 80061; 82306

== ENCOUNTER 2022-08-30 01:19 | Outpatient (CLI) | payer MEDICARE, SELFPAY ==
--- NOTE | 2022-08-30 | DI.US_ITS ---
Exam(s) US SOFT TISS ABD WALL/LOW BACK EXAM: US SOFT TISS ABD WALL/LOW BACK CLINICAL HISTORY: SOFT TISSUE MASS, M79.9, MASS JUST BENEATH XYPHOID, LIPOMA VS BONY MASS. TECHNIQUE: Ultrasound was performed using standard protocol. COMPARISON: CR XR STERNUM from 08/30/2022 FINDINGS: Sonographic assessment utilizing grayscale and color Doppler imaging was performed and targeted to th e area of clinical concern. There is a hypoechoic shadowing structure in the midline of the anterior chest reported to be in the subxiphoid region. It is not well characterized sonographically. It measures approximately 7 mm wid e. While this may be a solid mass, a bony lesion, possibly related to the xiphoid cannot be excluded . A CT scan of the chest to include this area is recommended for further evaluation. IMPRESSION: DATA REPOSITORY:
--- NOTE | 2022-08-30 12:47 | DI.RAD_ITS ---
Exam(s) XR STERNUM EXAM: XR STERNUM CLINICAL HISTORY: SOFT TISSUE MASS, M79.9, MASS JUST BENEATH XYPHOID, LIPOMA VS BONY MASS. TECHNIQUE: 2D digital imaging was performed. COMPARISON: No exams were available for comparison FINDINGS: BONES: No acute fracture is present. No bony destructive lesion is seen. JOINTS: No dislocation present. SOFT TISSUE: Normal. IMPRESSION: Unremarkable radiographs of the sternum. DATA REPOSITORY: RADIATION DOSE DELIVERED:
== END 2022-08-30 01:39 ==
LOC: DI 01:19
PROVIDERS: PCP Family Medicine; Visit Provider Family Medicine
DX: M79.89 Other specified soft tissue disorders (principal); R22.2 Localized swelling, mass and lump, trunk
CPT/HCPCS: 71120; 76705

== ENCOUNTER 2022-09-22 00:51 | Outpatient (CLI) | payer MEDICARE, SELFPAY ==
--- NOTE | 2022-09-22 08:00 | DI.CT_ITS ---
Exam(s) CT CHEST W EXAM: CT CHEST W CLINICAL HISTORY: SOFT TISSUE MASS, M79.9. TECHNIQUE: Multi planar reconstructions were performed. CONTRAST MATERIAL: Omnipaque 350; 75 cc COMPARISON: US US SOFT TISS ABD WALL/LOW BACK from 08/30/2022 CR XR STERNUM from 08/30/2022 FINDINGS: CHEST: LUNGS: Mild benign-appearing increased markings in the posterior aspect of the right upper lobe. In the right lower lobe there is an area measuring 1.5 x 1.1 cm comprised of multiple small nodules with average size 5 mm.. No other focal right lung findings. In the opposite-left lung there is some mi ld benign-appearing pleural based increased markings in the medial aspect of the superior segment of the left lower lobe. No other left lung findings and there are no pleural effusions on either side. There are no significant focal findings in the trachea and mainstem bronchi. There is no bronchiect asis. MEDIASTINUM: There is no hilar nor mediastinal adenopathy. Partially visualized thyroid appears unrem arkable. With respect of the sternum-xiphoid process which is apparently area of concern, the xiphoid is sligh tly prominent left of center but within normal limits. The xiphoid is curved anteriorly which may be what is being felt. However, there is no discernible mass at this level and there is no abnormal fl uid collection. Another interesting finding in this the articulation which is normally present between the manubrium and the body of the sternum. CARDIAC: Heart size is normal. There is no pericardial effusion.Caliber of the thoracic aorta is wit hin normal limits. VISUALIZED UPPER ABDOMEN:There are no significant adrenal masses. Hepatic steatosis noted. OSSEOUS: No significant rib findings. Sternal findings as described above. Thoracic vertebral speedy s appear unremarkable.. IMPRESSION: 1. Findings at the level of the xiphoid process are as described above and benign appearance. Incide ntally noted is fusion across the manubriosternal joint in this patient. 2. There is a small area in the right lower lobe which exhibits multiple small adjacent 5 millimeter nodular densities for total measurement of approximately 1.5 x 1.1 cm. This requires follow-up CT sc an after appropriate clinical interval. 3. No pleural effusions and no intrathoracic adenopathy. RADIATION DOSE DELIVERED: 436.81mGy.cm Total DLP DATA REPOSITORY: All CT scans at this facility are submitted to the National Radiology Data Registry (NRDR) Dose Index Registry (DIR) with the [employer] (ACR). RADIATION OPTIMIZATION: All CT scans at this facility use at least one of these dose optimization te chniques: automated exposure control; mA and/or kV adjustment per patient size (includes targeted exa ms where dose is matched to clinical indication); or iterative reconstruction.
[2022-09-22] MEDS: Omnipaque 350 MG/ML 500 ML BTL-Imaging package 70 ML IJ (08:28)
== END 2022-09-22 01:11 ==
LOC: DI 00:51
PROVIDERS: PCP Family Medicine; Visit Provider Family Medicine
DX: M79.9 Soft tissue disorder, unspecified (principal)
CPT/HCPCS: 71260

== ENCOUNTER 2022-11-02 01:53 | Outpatient (CLI) | payer MEDICARE, SELFPAY ==
--- NOTE | 2022-11-02 | DI.CT_ITS ---
Exam(s) CT CHEST WO EXAM: CT CHEST WO CLINICAL HISTORY: PULMONARY NODULE R91.1. TECHNIQUE: Multi planar reconstructions were performed. CONTRAST MATERIAL: None COMPARISON: CR XR STERNUM from 08/30/[address] CHEST W from 09/22/2022 FINDINGS: CHEST: LUNGS: Previously described finding in the right lower lobe comprised multiple small contiguous nodul ar densities is unchanged 09/22/2022. There are no new additional similar findings in either lung field. On the present study there is a n ew small shallow noncalcified pleural based density over the right lower lobe measuring 6 x 3 mm. Pr esently exhibits benign appearance. MEDIASTINUM: There is no obvious hilar nor mediastinal adenopathy. No subcarinal adenopathy.Visualize d thyroid unremarkable. No axillary adenopathy. CARDIAC: Heart size is normal. There is no pericardial effusion.Caliber of the thoracic aorta is wit hin normal limits. VISUALIZED UPPER ABDOMEN:No significant findings. OSSEOUS: No significant osseous lesions.No fractures. IMPRESSION: 1. Unchanged appearance of the right lower lobe finding described on the CT scan of 09/22/2022. Othe r finding present with benign appearance in the right lung as described above. No pleural effusions. No intrathoracic adenopathy. 2. Recommend repeat noninfused CT scan in 6 months RADIATION DOSE DELIVERED: 467.74mGy.cm Total DLP DATA REPOSITORY: All CT scans at this facility are submitted to the National Radiology Data Registry (NRDR) Dose Index Registry (DIR) with the [employer] ([employer]). RADIATION OPTIMIZATION: All CT scans at this facility use at least one of these dose optimization te chniques: automated exposure control; mA and/or kV adjustment per patient size (includes targeted exa ms where dose is matched to clinical indication); or iterative reconstruction.
== END 2022-11-02 02:13 ==
LOC: DI 01:54
PROVIDERS: PCP Family Medicine; Visit Provider Family Medicine
DX: R91.1 Solitary pulmonary nodule (principal)
CPT/HCPCS: 71250

== ENCOUNTER 2023-02-15 16:59 | Outpatient (REF) | payer MEDICARE, SELFPAY ==
[2023-02-15 16:32] LABS: TSH (W/Ref FT4) 4.08 uIU/mL (0.36-3.74)
[2023-02-15 16:57] LABS: FREE T4 0.77 ng/dL (0.76-1.46)
== END 2023-02-15 17:00 | disposition home or self-care (01) ==
LOC: NCHCN 16:59
PROVIDERS: PCP Family Medicine; Visit Provider Family Medicine
DX: E03.9 Hypothyroidism, unspecified (principal)
CPT/HCPCS: 84439; 84443

== ENCOUNTER → 2023-03-01 09:25 | Outpatient (BNVA) | payer MEDICARE, SELFPAY | PROVIDERS: PCP Family Medicine; Referring Provider Family Medicine | DX: M70.62 Trochanteric bursitis, left hip (principal); Z96.642 Presence of left artificial hip joint | CPT/HCPCS: 20610; J1030 ==

== ENCOUNTER 2023-03-27 16:11 | Outpatient (REF) | payer MEDICARE, SELFPAY ==
[2023-03-27 15:46] LABS: TSH (W/Ref FT4) 0.54 uIU/mL (0.36-3.74)
== END 2023-03-27 16:12 | disposition home or self-care (01) ==
LOC: NCHCN 16:11
PROVIDERS: PCP Family Medicine; Visit Provider Family Medicine
DX: E03.9 Hypothyroidism, unspecified (principal)
CPT/HCPCS: 84443

== ENCOUNTER → 2023-05-23 02:10 | Outpatient (CLI) | payer MEDICARE, SELFPAY ==
--- NOTE | 2023-05-23 | DI.CT_ITS ---
Exam(s) CT CHEST WO EXAM: CT CHEST WO CLINICAL HISTORY: F/U PULMONARY NODULE,R91.1,6 MO F/U. TECHNIQUE: Multi planar reconstructions were performed. CONTRAST MATERIAL: None COMPARISON: CT CT CHEST W from 09/22/[address] CHEST WO from 11/02/2022 FINDINGS: CHEST: LUNGS: On the present study the previously described finding in the right lower lobe consisting of mu ltiple small contiguous nodular densities remains unchanged. There are no new right lung findings. The previously described pleural based noncalcified density in the right lower lobe is no longer seen . No pleural effusion. In the opposite-left lung there is mild infiltrate evident in the superior segment of the left lower lobe. This appears more evident than on the most recent study but with only minimal if any significa nt change compared to the CT scan of 09/22/2022. No findings in the upper lobe and lingular segment nor in the basal segments of the left lower lobe. No pleural effusion. There are no focal findings in the trachea and mainstem bronchi. MEDIASTINUM: There is no obvious hilar nor mediastinal adenopathy. Visualized thyroid unremarkable.No obvious axillary adenopathy CARDIAC: Heart size is normal. There is no pericardial effusion.Caliber of the thoracic aorta is wit hin normal limits. VISUALIZED UPPER ABDOMEN:No significant findings. No adrenal masses. OSSEOUS: No significant osseous lesions.. IMPRESSION: 1. Continued stable appearance of the previously described finding in the right lower lobe and resolu tion of the previously described 6 millimeter pleural based density in the right lung. 2. Mild infiltrate in the superior segment of the left lower lobe is unchanged from 09/22/2022. 3. No pleural effusions on either side and there is no intrathoracic adenopathy. RADIATION DOSE DELIVERED: Total DLP DATA REPOSITORY: All CT scans at this facility are submitted to the National Radiology Data Registry (NRDR) Dose Index Registry (DIR) with the [employer] (ACR). RADIATION OPTIMIZATION: All CT scans at this facility use at least one of these dose optimization te chniques: automated exposure control; mA and/or kV adjustment per patient size (includes targeted exa ms where dose is matched to clinical indication); or iterative reconstruction.
== END ==
PROVIDERS: PCP Family Medicine; Visit Provider Family Medicine
DX: R91.1 Solitary pulmonary nodule (principal)
CPT/HCPCS: 71250

== ENCOUNTER 2023-06-14 14:27 | Outpatient (REF) | payer MEDICARE, SELFPAY ==
[2023-06-14 14:43] LABS: TSH (W/Ref FT4) 0.74 uIU/mL (0.36-3.74)
== END 2023-06-14 14:28 | disposition home or self-care (01) ==
LOC: NCHCN 14:27
PROVIDERS: PCP Family Medicine; Visit Provider Family Medicine
DX: E03.9 Hypothyroidism, unspecified (principal)
CPT/HCPCS: 84443

== ENCOUNTER → 2023-06-26 03:09 | Outpatient (CLI) | payer MEDICARE, SELFPAY ==
--- NOTE | 2023-06-26 | DI.MAMMO_ITS ---
Exam(s) MAMMO SCREENING EXAM: MAMMO SCREENING CLINICAL HISTORY: SCREENING,Z12.31 TECHNIQUE: Bilateral full field digital CC and MLO mammographic images were obtained with 3D tomosyn thesis and utilizing computer aided detection (CAD). COMPARISON: Available for comparison. FINDINGS: Masses/Architectural Distortion: None seen. Microcalcifications: No suspicious pleomorphic-type are seen. Skin Thickening/Nipple Retraction: None. IMPRESSION: 1. No significant interval change with no specific features of malignancy noted. 2. Unless there is more urgent need, screening mammography is recommended, as per [employer] guidelines. BI-RADS Category 1 - Negative Breast Density - Category B - Scattered areas of fibroglandular density Breast density category C or D implies that the patient has dense breast tissue. Dense breast tissue is very common and is not abnormal but dense breast tissue can make it harder to find cancer on a ma mmogram. Also, dense breast tissue may increase their breast cancer risk. This information about the result of the mammogram report was provided to the patient to raise their awareness. Use this report when you speak with the patient about their risks for breast cancer, which includes their family hist ory. At that time, you may recommend for more screening tests (Ultrasound or MRI) as they might be us eful based on their risk. A negative radiographic report should not delay biopsy if a dominant or clinically suspicious mass is present. Up to ten percent of cancers are not identified on mammography. A negative report may reinforce clinical impression. Adenosis and dense breasts may obscure an underlying neoplasm. False positive reports average 6 to 10%. Patient will receive a letter notifying them of these results.
== END ==
PROVIDERS: PCP Family Medicine; Visit Provider Family Medicine
DX: Z12.31 Encounter for screening mammogram for malignant neoplasm of breast (principal)
CPT/HCPCS: 77063; 77067

== ENCOUNTER 2024-04-03 01:47 | Outpatient (CLI) | payer MEDICARE, SELFPAY ==
--- NOTE | 2024-04-03 | DI.DEXA_ITS ---
Exam(s) XR DEXA BONE DENSITY W/WO JANE EXAM: XR DEXA BONE DENSITY W/WO JANE CLINICAL HISTORY: Osteopenia, M85.88-other specified disorders of bone density and structure, TECHNIQUE: [employer] C densitometer analysis of left hip, lumbar spine and right forearm. La teral survey image of the thoracic and lumbar spine. COMPARISON: CR XR HIP LT COMPLETE AP PELVIS from 06/12/2022 FINDINGS: Lateral view of the thoracic and lumbar spine shows no evidence of compression fractures. Bone mineral density measurements of the lumbar spine correspond to a total T-score of 0.2, in the n ormal range Bone mineral density measurements of the left hip correspond to a total T-score of -1.8. The femora l neck T-score is -1.4, in the osteopenic range . Theright forearm bone mineral density measurements correspond to a T-score of the distal 3rd of -1.4 , in the osteopenic range.. IMPRESSION: Normal bone mineral density of the spine. Osteopenia the hip and forearm.
== END 2024-04-03 02:07 ==
LOC: DI 01:47
PROVIDERS: PCP Family Medicine; Visit Provider Family Medicine
DX: M85.88 Other specified disorders of bone density and structure, other site (principal)
CPT/HCPCS: 77080

== ENCOUNTER 2024-06-30 15:54 | Outpatient (CLI) | payer MEDICARE, SELFPAY ==
--- NOTE | 2024-06-30 09:15 | DI.RAD_ITS ---
Exam(s) XR KNEE RT 4V AP,LAT,GARETT,PAT EXAM: XR KNEE RT 4V AP,LAT,GARETT,PAT CLINICAL HISTORY: R knee pain. TECHNIQUE: 2D digital imaging was performed of the right knee. Four views obtained. Merchant, AP, la teral and PA tunnel views were obtained. COMPARISON: No exams were available for comparison FINDINGS: BONES: No acute fracture is present. No bony destructive lesion is seen. JOINTS: There is mild narrowing of the medial femoral tibial joint. There is a joint effusion presen t. SOFT TISSUE: Normal. IMPRESSION: Mild joint space narrowing and a small joint effusion. DATA REPOSITORY: RADIATION DOSE DELIVERED:
== END 2024-06-30 15:55 | disposition home or self-care (01) ==
LOC: DIORS 15:54
PROVIDERS: PCP Family Medicine; Referring Provider Family Medicine; Visit Provider Student in an Organized Health Care Education/Training Program
DX: M23.91 Unspecified internal derangement of right knee
CPT/HCPCS: 20610; 99213; J1010; 73564

== ENCOUNTER 2024-09-11 22:10 | Outpatient (REF) | payer MEDICARE, SELFPAY ==
[2024-09-11 15:49] LABS: HCT 38.1 % (36.0-46.0); HGB 12.2 g/dL (11.2-15.7); MCV 100 fL (80-95); MPV 10.6 fL (8.0-11.0); Platelet Count 194 10^3/uL (130-400); RBC 3.81 10^6/uL (3.93-5.22); RDW 12.1 % (11.7-14.6); RDW-SD 44.4 fL; WBC 6.33 10^3/uL (4.4-10.8)
[2024-09-11 16:27] LABS: COMMENT (LAB VIEW ONLY) 134.02 mg/dL; Microalb ug/mg Crea 20.1 ug/mg Cr
[2024-09-11 16:56] LABS: ALT 43 U/L (14-59); AST 21 U/L (15-37); Albumin 3.7 g/dL (3.4-5.0); Alkaline Phosphatase 83 U/L (46-116); Anion Gap 8.9 mmol/L (3-11); BUN 20 mg/dL (7-18); Bilirubin, Total 0.6 mg/dL (0.2-1.0); CO2 27.1 mmol/L (21.0-32.0); Chloride 107 mmol/L (98-107); Estimated GFR 57.31 (mL/min/1.73m2); Glucose 142 mg/dL (74-106); Potassium 4.7 mmol/L (3.5-5.1); Sodium 143 mmol/L (136-145); TSH 1.28 uIU/mL (0.36-3.74); Vitamin B12 1268 pg/mL (193-986)
[2024-09-11 17:13] LABS: FREE T4 1.14 ng/dL (0.76-1.46)
== END 2024-09-11 22:11 | disposition home or self-care (01) ==
LOC: NCHCN 22:10
PROVIDERS: PCP Family Medicine; Visit Provider Family Medicine
DX: E03.9 Hypothyroidism, unspecified; I10 Essential (primary) hypertension; E11.40 Type 2 diabetes mellitus with diabetic neuropathy, unspecified
CPT/HCPCS: 80053; 85027; 82043; 82570; 82607; 84439; 84443

== ENCOUNTER 2024-10-15 01:56 | Outpatient (CLI) | payer MEDICARE, SELFPAY ==
--- NOTE | 2024-10-15 | DI.MAMMO_ITS ---
Exam(s) MAMMO SCREENING EXAM: MAMMO SCREENING CLINICAL HISTORY: SCREENING, Z12.31 TECHNIQUE: Bilateral full field digital CC and MLO mammographic images were obtained with 3D tomosyn thesis and utilizing computer aided detection (CAD). COMPARISON: Available for comparison. FINDINGS: Masses/Architectural Distortion: No suspicious masses or areas of architectural distortion are presen t. Microcalcifications: No suspicious pleomorphic-type are seen. Skin Thickening/Nipple Retraction: None. IMPRESSION: 1. No significant interval change with no specific features of malignancy noted. 2. Unless there is more urgent need, screening mammography is recommended, as per [employer] guidelines. BI-RADS Category 1 - Negative Breast Density - Category B - There are scattered areas of fibroglandular density. Breast density Category C or D implies that the patient has dense breast tissue. Dense breast tissue can make it harder to find cancer on a mammogram. Dense breast tissue is also associated with an incr eased risk of breast cancer. This information about the result of the mammogram report was provided to the patient to raise their awareness. Use this report when you speak with the patient about their risks for breast cancer, which includes their family history. At that time, you may recommend additional screening tests (Ultrasoun d or MRI) as these tests may add significant information. A negative radiographic report should not delay biopsy if a dominant or clinically suspicious mass is present. Up to ten percent of cancers are not identified on mammography. A negative report may reinforce clinical impression. Adenosis and dense breasts may obscure an underlying neoplasm. False positive reports average 6 to 10%. Patient will receive a letter notifying them of these results.
== END 2024-10-15 02:16 ==
LOC: DI 01:56
PROVIDERS: PCP Family Medicine; Visit Provider Family Medicine
DX: Z12.31 Encounter for screening mammogram for malignant neoplasm of breast (principal); R92.323 Mammographic fibroglandular density, bilateral breasts
CPT/HCPCS: 77063; 77067

== ENCOUNTER 2024-10-15 01:57 | Outpatient (CLI) | payer MEDICARE, SELFPAY ==
--- NOTE | 2024-10-15 06:15 | DI.MRI_ITS ---
Exam(s) MR LOWER JOINT RT WO EXAM: MR LOWER JOINT RT WO CLINICAL HISTORY: R KNEE PAIN,internal derangement rt knee,m23.91. TECHNIQUE: Multiplanar multisequence MRI was performed. COMPARISON: CR XR KNEE RT 4V AP,LAT,GARETT,PAT from 06/30/2024 FINDINGS: BONES: Subchondral cysts are seen in the lateral tibial plateau. There is mild edema seen in the lat eral aspect of the proximal tibia. No evidence of a fracture. There is a linear hyperintense focus seen in the lateral tibial metaphysis which appears to be vascular. JOINTS: There is thinning of the articular cartilage overlying the patella with mild subchondral samra a. There is also thinning of the articular cartilage in the lateral femoral tibial joint. There is a small joint effusion. There is a thickened structure seen in the lateral aspect of the joint attac hed to the patella which may represent a plica. TENDONS: Extensor mechanism: Unremarkable. Medial retinaculum: Unremarkable. Lateral retinaculum: Unremarkable. Popliteus: Unremarkable. MUSCLES: Mild muscular fatty atrophy. MENISCI: The medial meniscus is unremarkable. There is heterogeneity of the root of the lateral meni scus suspicious for tear versus degeneration. SOFT TISSUES: There is mild edema seen in the soft tissues anterior to the extensor mechanism. No fo ryland fluid collection is seen in the soft tissues. LIGAMENTS: Anterior Cruciate: Unremarkable. Posterior Cruciate: Unremarkable. Medial Collateral:Unremarkable. Lateral Collateral: Unremarkable. OTHER: IMPRESSION: 1. Mild edema in the proximal lateral tibia but no evidence of a fracture. 2. Findings suggestive of a tear of the root of the lateral meniscus. 3. No evidence of a ligament tear. 4. Joint effusion. 5. 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 DATA REPOSITORY:
== END 2024-10-15 02:17 ==
LOC: DI 01:57
PROVIDERS: PCP Family Medicine; Visit Provider Student in an Organized Health Care Education/Training Program
DX: M23.91 Unspecified internal derangement of right knee (principal)
CPT/HCPCS: 73721

== ENCOUNTER → 2024-11-17 14:52 | Outpatient (BNVA) | payer MEDICARE, SELFPAY | PROVIDERS: PCP Family Medicine; Referring Provider Family Medicine; Visit Provider Student in an Organized Health Care Education/Training Program | DX: M17.11 Unilateral primary osteoarthritis, right knee (principal); M23.91 Unspecified internal derangement of right knee | CPT/HCPCS: 99213 ==

== ENCOUNTER → 2025-01-01 11:17 | Outpatient (BNVA) | payer MEDICARE, SELFPAY | PROVIDERS: PCP Family Medicine; Referring Provider Family Medicine; Visit Provider Physical Therapy Assistant | DX: Z12.11 Encounter for screening for malignant neoplasm of colon (principal); Z86.0102 Personal history of hyperplastic colon polyps; Z86.0109 Personal history of other colon polyps; I10 Essential (primary) hypertension; E11.9 Type 2 diabetes mellitus without complications; K21.9 Gastro-esophageal reflux disease without esophagitis; E03.9 Hypothyroidism, unspecified | CPT/HCPCS: S0285 ==

== ENCOUNTER 2025-01-12 06:04 | Day surgery (SDC) | payer MEDICARE, SELFPAY ==
--- NOTE | 2025-01-11 17:16 | W.PM.DSUDISC ---
Date of service: 01/12/25 Discharge Plan Disposition Patient Disposition: Home Condition: Good Discharge Details Reason For Visit: screening colonoscopy Attending Provider: Lui Tatum Primary Care Provider: Jakcie Long Home Meds and New Rx's Prescriptions: Continued cyanocobalamin (vitamin B-12) 1,000 mcg capsule 1,000 mcg PO DAILY citalopram [Celexa] 10 MG tablet 20 mg PO DAILY glipizide 10 MG tablet 10 mg PO DAILY levothyroxine 100 MCG tablet 100 mcg PO DAILY DAILY VITAMIN FORMULA-MINERALS 1 EACH tablet 1 ea PO DAILY losartan 100 mg tablet 100 mg PO DAILY metformin 1,000 mg tablet 1,000 mg PO BID insulin glargine [Lantus U-100 Insulin] 100 unit/mL solution 38 unit subcut HS aspirin 81 mg tablet 81 mg PO DAILY acetaminophen 500 mg tablet 500 mg PO Q6H PRN (Reason: pain) Qty: 60 2RF famotidine 20 mg tablet 20 mg PO HS Discontinued bisacodyl [Dulcolax (bisacodyl)] 5 mg tablet,delayed release (DR/EC) 5 mg PO ONCE Qty: 4 0RF Rx Instructions: Take per colonoscopy instructions provided by ordering providers office polyethylene glycol 3350 17 gram/dose powder 17 g PO ONCE Qty: 238 0RF Rx Instructions: Take per colonoscopy instructions provided by ordering providers office Discharge Instructions Instructions: Colon polyps, Diverticulosis Additional Instructions: Marc, it was very nice meeting you today, and I hope you feel well after the procedure. Things went very smoothly. I did find, and remove a total of 6 polyps today. All of these are quite small. In fact one of them might not even be a true polyp. Regardless, to be safe I will send these all off to the pathologist for their review. Those results will take a week or so, but once I get them, my office will be in touch with recommendations for future colonoscopies. If you need anything, or have any questions at all, please do not hesitate to ask. 1. If tolerated, consume a soft, low fiber diet for 1-2 days. 2[address] Do not drive, drink alcohol, operate machinery, make critical decisions, or do activities that require coordination or balance for 24 hours. 3. Because air was put into your colon during the procedure, expelling air from your rectum (passing gas or farting) is normal. 4. You may not have a bowel movement for 1-3 days because of the colonoscopy prep. This is normal. 5. Go directly to the emergency room if you notice any of the following: Develop chills (warm to touch), or if you have a thermometer and your temperature is above 101 Difficulty breathing or difficultly swallowing Persistent vomiting Severe abdominal pain, other than gas cramps Severe chest pain Black, tarry stools Any bleeding ? exceeding one tablespoon 6. Call your physician if the site where your intravenous was started becomes red, swollen, painful, and warm to touch. 7. Your physician has reviewed your pre-procedure medications. Please continue to take those medications as previously ordered. You will be given specific information/education regarding any changes to your medications before leaving. Activity:: Activity as Tolerated Diet:: As Tolerated Discharge Orders Discharge Orders: Discharge Order (Routine); Ordered 01/11/25 Ordered By: Lui Tatum DS: Diagnosis Discharge Diagnosis (1) Encounter for screening colonoscopy: Status: Acute Asessment and Plan: Follow-up on polypectomy results
--- NOTE | 2025-01-11 17:18 | W.COLOREPORT ---
Date of service: 01/12/25 Time of Service: 08:17 Colonoscopy Report Date of procedure: 01/12/25 Pre-op diagnosis general: screening colonoscopy Post-op diagnosis procedure note: other (Colon polyps, diverticulosis) Procedure: colonoscopy with polypectomy Surgeon: Lui Tatum Anesthesia Type: General:No Airway Estimated blood loss (mL): 10 Pathology: other (0.25 cm flat polyps at 130, 120, 65 (x 3), and 40 cm) Complications: None Disposition: same day Indications: Marc is an 79 year old woman with a history of tubular adenomas who needs her next screening colonoscopy Prep: Miralax/Dulcolax Procedure Start Time: 07:33 Procedure End Time: 08:05 Retraction Time: 18 Findings: Sigmoid diverticulosis, colon polyps Procedure Description: After the induction of anesthesia, and with Marc in left lateral decubitus position, I began by performing an external anorectal exam.? Perineum and skin were normal, as was the anal verge.? Next, I performed a digital rectal exam.? I did not appreciate any abnormal findings.? Next, I advanced a colonoscope into the rectal vault.? I performed retroflexion.? This appeared normal.? Using irrigation, I then advanced the colonoscope beyond the rectal folds and into the sigmoid colon before advancing towards the cecum.?The scope was noted to be in the cecum by identification of the ileocecal valve and appendiceal orifice.? I then began withdrawing the colonoscope using repeated irrigation as necessary for full evaluation of the colonic mucosa. Around 130 cm from the anal verge was a small bit of mucosal tissue that did have some polypoid features. This was removed with cold forceps with minimal bleeding. A more traditional adenomatous appearing polyp was found at 120 cm. This was about 0.25 cm and mostly flat. This was removed with cold forceps without any difficulty. Around 65 cm from the anal verge were 3 more polyps. These were all about 0.25 cm and flat. These were just a few millimeters away from 1 another. All of these were removed with cold forceps without any significant bleeding. These were sent as a single specimen. Another 0.25 cm flat polyp was found and removed from 40 cm beyond the anal verge. Once the scope was withdrawn to the level of the rectum, great care was taken to examine portions of the rectal folds.? Finally, the scope was withdrawn and the patient was brought to the same-day surgery recovery unit as the anesthetic wore off. ?The findings and instructions were shared with the patient prior to discharge. [place] Bowel Prep [place] Bowel Prep Right Colon: 2 Left Colon: 3 Transverse Colon: 3 Total Score: 8
[2025-01-12] VITALS (11 sets, daily range): BP systolic 121–129; BP diastolic 61–74; PULSE 71–87; RESP 16–28; TEMP 36.1–36.6; O2SAT 95–99; BMI 24.1
[2025-01-12] MEDS: Lactated Ringers 1,000 ML 80 ML IV (06:42)
--- NOTE | 2025-01-12 07:12 | W.ANESPRE ---
General Info Date of Service Date Performed: 01/12/25 Height: 5 ft 9 in Weight: 74.2 kg Body Mass Index (BMI): 24.1 Surgical Procedure: Operation Date: 01/12/25 07:35 Proposed Procedure Side Surgeon misti Tatum MD Meds Allergies and Home Medications Allergies Allergy/AdvReac Type Severity Reaction Status Date / Time No Known Allergies Allergy Verified 01/12/25 06:15 Home Medication ?Medication ?Instructions ?Recorded citalopram 10 mg tablet (Celexa) 20 mg PO DAILY 12/01/16 glipizide 10 mg tablet 10 mg PO DAILY 12/01/16 levothyroxine 100 mcg tablet 100 mcg PO DAILY 12/01/16 multivitamin with minerals (DAILY 1 ea PO DAILY 12/01/16 VITAMIN FORMULA-MINERALS tablet) losartan 100 mg tablet 100 mg PO DAILY 09/22/21 cyanocobalamin (vitamin B-12) 1,000 mcg PO DAILY 09/23/21 1,000 mcg capsule acetaminophen 500 mg tablet 500 mg PO Q6H PRN pain #60 tabs 05/30/22 aspirin 81 mg tablet 81 mg PO DAILY 10/29/24 insulin glargine 100 unit/mL 38 unit subcut HS 10/29/24 subcutaneous solution (Lantus U-100 Insulin) metformin 1,000 mg tablet 1,000 mg PO BID 10/29/24 famotidine 20 mg tablet 20 mg PO HS 01/01/25 Current Visit Medications: Current Medications Generic Name Dose Route Start Last Admin Trade Name Freq PRN Reason Stop Dose Admin Ringer's Solution 1,000 mls @ 80 mls/hr 01/12/25 06:00 01/12/25 06:42 IV 01/12/25 23:59 80 mls/hr INFUSION JEFFERY Administration IV Miscellaneous Supplies 1 each 01/12/25 06:00 Iv Access IV 01/12/25 23:59 DIRECTED JEFFERY Sodium Chloride 0 ml 01/12/25 06:00 Normal Saline Flush 10 Ml Syr IV 01/12/25 23:59 PRN PRN Sodium Chloride 0 ml 01/12/25 06:00 Normal Saline 10 Ml Vial IJ 01/12/25 23:59 DIRECTED PRN Sterile Water 0 ml 01/12/25 06:00 Water,Injection,Sterile 10 Ml Vial IJ 01/12/25 23:59 DIRECTED PRN PFSH Active Problems Active Problems: Problem Status Onset Code Encounter for screening colonoscopy Acute Z12.11 Arthritis of right knee Acute M17.11 Internal derangement of right knee Acute M23.91 Trochanteric bursitis, left hip Acute M70.62 Hyperplastic colon polyp Acute K63.5 Arthritis of carpometacarpal (CMC) joint of right thumb Acute M18.11 Arthritis of carpometacarpal (CMC) joint of left thumb Acute M18.12 Diarrhea Acute R19.7 Encounter for colorectal cancer screening Acute Z12.11, Z12.12 Medical History Medical History At risk for aspiration Aspirated during Colonoscopy in 2021 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 Confirmed at pre-op admission 05/30/22 . Surgical History Surgical History History of total left hip arthroplasty (05/30/22) Hx of appendectomy Tonsillectomy and adenoidectomy Oophrectomy, Both Abdominal hysterectomy Colonoscopy - MAC (12/26/16) 01/2022 Colonoscopy - IV Sedation 2006 Tobacco Smoking/Tobacco Use Status: Former Tobacco Use Passive smoking exposure: No Alcohol Alcohol Intake: current Alcohol intake frequency: 0-2 drinks per day Alcohol type: wine and hard liquor Substance Use Substance use: Never Substance use type: does not use Vital Signs and Lab Results Vital Signs Most Recent Vital Signs in EMR: Most Recent Vital Signs Temp Pulse Resp BP Pulse Ox 36.4 C L 75 16 129/74 95 01/12/25 06:25 01/12/25 06:25 01/12/25 06:25 01/12/25 06:25 01/12/25 06:25 Point of Care Results Point of Care Results: Finger Stick Blood Glucose 124 01/12/25 06:48 Anesthesia Assessment and Plan Anesthesia History Personal History: Other (aspiration with sedation) Family History: No Family History of Anesthesia Complications Exercise Tolerance Exercise Tolerance: Metabolic Equivalents>4 Pertinent Negatives Pertinent Negatives: No Major Cardiovascular Symptoms or Complaints and No Major Pulmonary Symptoms or Complaints Cardiac & Pulmonary Exam Cardiac Exam: Normal S1/S2 Heart Sounds Pulmonary Exam: Clear Bilateral Breath Sounds Implantable Cardiac Device Does patient have a Pacemaker or an ICD?: No Airway Exam Known Difficult Airway: No Mallampati Class: 3 Mouth Opening: Normal (> 3cm) Thyromental Distance: Greater than 3 cm Neck Range of Motion: Full ROM Neck Circumference: Normal Teeth Condition: Normal Dentition ASA Classification ASA Score: ASA 2 Emergency Case?: No NPO Status NPO Status: NPO Clears >2 hours, Solids >8 hours Anesthesia Plan Resuscitation Status: Full Code Anesthesia Technique: General Anesthesia Airway Planned: Natural Airway Monitors Used: Standard Monitors
--- NOTE | 2025-01-12 07:53 | BOWEL_PTH ---
PATIENT: Marc Brunson LOC: [facility] U#:[id number] AGE/SX: 79/F ROOM: RE01/12/[address]: Lui Tatum MD : [id number] BED: DIS: 01/12/2025 SPEC #: [id number] RECD: 01/12/25 12:13 STATUS: MICHELLE RE #: [id number] WINIFRED: 01/12/25 07:[address]: Lui Tatum DEPT: Surgical Specimen RECD BY: Maddie Sams ENTERED: 01/12/25 12:14 SP TYPE: Bowel OTHR DR: Jackie Long Tissues: 1 - BIOPSY BOWEL 2 - BIOPSY BOWEL 3 - BIOPSY BOWEL 4 - BIOPSY BOWEL Procedures: GROSS AND MICRO LEVEL 4 Comments: [id number]
--- NOTE | 2025-01-12 09:19 | W.ANESPOSTOP ---
Postoperative Evaluation Date, Time and Location Date Performed: 01/12/25 Time Performed: 09:14 Patient Location: Day Surgery Unit Vital Signs Most Recent Imported Vital Signs: Most Recent Vital Signs Temp Pulse Resp BP Pulse Ox 36.2 C L 72 18 124/64 99 01/12/25 08:40 01/12/25 08:40 01/12/25 08:40 01/12/25 08:40 01/12/25 08:40 Pain Score Most Recent Pain Score: Most Recent Pain Score Pain Level 0 01/12/25 08:40 Assessment Mental Status: Awake (Alert & Oriented to Patient Baseline) Airway and Respiratory Function: Patent airway with normal (patient baseline) respiratory exam Cardiovascular Function: Hemodynamically Stable Hydration Status: Adequately Hydrated Nausea & Vomiting: No Nausea or Vomiting Pain: Pt. Denies Any Pain Peripheral Nerve Block: Patient did not receive a nerve block
== END 2025-01-12 09:23 | disposition home or self-care (01) ==
LOC: SUR 06:06
PROVIDERS: PCP Family Medicine; Visit Provider Surgery
PROC: 0DJD8ZZ Inspection of Lower Intestinal Tract, Via Natural or Artificial Opening Endoscopic (ICD-10-PCS; CPT 45378; principal; 2025-01-12 07:30)
DX: Z12.11 Encounter for screening for malignant neoplasm of colon (principal); K57.30 Diverticulosis of large intestine without perforation or abscess without bleeding; D12.2 Benign neoplasm of ascending colon; D12.3 Benign neoplasm of transverse colon; D12.5 Benign neoplasm of sigmoid colon
CPT/HCPCS: 45380; 88305; J1805; J2003; J2704

== ENCOUNTER → 2025-01-26 08:08 | Outpatient (BNVA) | payer MEDICARE, SELFPAY | PROVIDERS: PCP Family Medicine; Referring Provider Family Medicine; Visit Provider Student in an Organized Health Care Education/Training Program | DX: M17.11 Unilateral primary osteoarthritis, right knee (principal); M23.91 Unspecified internal derangement of right knee | CPT/HCPCS: 99214 ==

== ENCOUNTER 2025-02-23 19:12 | Emergency (ER) | payer MEDICARE, SELFPAY ==
[2025-02-23] VITALS (64 sets, daily range): BP systolic 61–113; BP diastolic 32–59; PULSE 92–113; RESP 19–31; TEMP 36.3; O2SAT 94–100
--- NOTE | 2025-02-23 19:00 | RT.EKG_ITS ---
APPROVED REPORT Exam: Resting ECG Reason for Exam: Diabetic Emergency Patient Location: E HR:102 bpm ECG Measurements Heart Rate 102 AXIS WV 156 P 56 QRSd 91 QRS 26 QT 351 T 26 QTc 458 Conclusion Sinus tachycardia, rate 102 No interval abnormalities No STEMI No priors available for comparison
[2025-02-23 19:33] LABS: BE (Venous) -9 mmol/L (-2-3); HCO3 (Venous) 18 mmol/L (23-28); O2 Sat (Venous) 32 %; TCO2 (Venous) 17 mmol/L (24-29); pCO2 (Venous) 41 mmHg (41-51); pO2 (Venous) 23 mmHg
[2025-02-23] MEDS: Lactated Ringers 1,000 ML 1000 ML IV (19:34)
[2025-02-23 19:35] LABS: Abs Immature Grans 1.43 10^3/uL (0.0-0.06); HCT 35.0 % (36.0-46.0); HGB 11.7 g/dL (11.2-15.7); MCH 32.3 pg (27.0-33.0); MCHC 33.4 % (32.0-36.0); MCV 97 fL (80-95); MPV 11.2 fL (8.0-11.0); RBC 3.62 10^6/uL (3.93-5.22); RDW 12.5 % (11.7-14.6); RDW-SD 44.9 fL
--- NOTE | 2025-02-23 19:44 | W.ED.GENAD ---
Discharge Plan Disposition Patient Disposition: Transfer-Acute Inpatient Care Specific Acute Inpt Facility: [facility] Condition: Improving Discharge Details Clinical Impression: Septic shock, Calculus of left ureter, Acute UTI, EDNA (acute kidney injury), Elevated troponin, Elevated brain natriuretic peptide (BNP) level, Hypomagnesemia, Thrombocytopenia Primary Care Provider: Jackie Long ED Provider: Betzy Sears Home Meds and New Rx's Prescriptions: No Action cyanocobalamin (vitamin B-12) 1,000 mcg capsule 1,000 mcg PO DAILY citalopram [Celexa] 10 MG tablet 20 mg PO DAILY glipizide 10 MG tablet 10 mg PO DAILY levothyroxine 100 MCG tablet 100 mcg PO DAILY DAILY VITAMIN FORMULA-MINERALS 1 EACH tablet 1 ea PO DAILY losartan 100 mg tablet 100 mg PO DAILY metformin 1,000 mg tablet 1,000 mg PO BID insulin glargine [Lantus U-100 Insulin] 100 unit/mL solution 38 unit subcut HS aspirin 81 mg tablet 81 mg PO DAILY acetaminophen 500 mg tablet 500 mg PO Q6H PRN (Reason: pain) Qty: 60 2RF famotidine 20 mg tablet 20 mg PO HS HPI General Mode of arrival: EMS. Date/Time Provider Initiated Documentation: 02/23/25 19:19. Limitations to Documentation: no limitations. Information obtained by: patient, EMS and old records reviewed. HPI Narrative: This is an 79-year-old female patient with a past medical history significant for diabetes, hypothyroidism, presenting for evaluation of low blood pressure, high blood sugar, generalized weakness and nausea with vomiting and diarrhea. The patient reports that she started to become ill yesterday, states that she had some nonbloody vomiting and diarrhea. She lives alone and has not had any reported sick contacts. She states that she missed a dose of insulin last night, is quite good at keeping on top of her blood glucose checks, states that today she was running in the 300s. She also takes glipizide and metformin for her diabetes. No recent changes to dosing of her medications. No fever, no abdominal pain, no shortness of breath, no dysuria. Transported by EMS, found to be hypotensive in the 60s systolic, received a liter of IV fluids without significant improvement in her pressures. She has been mentating appropriately, has no weakness or numbness unilaterally, does endorse that her vision has a purple tinge to it around lights Related Data Home Medications ?Medication ?Instructions ?Recorded ?Confirmed citalopram 10 mg tablet (Celexa) 20 mg PO DAILY 12/01/16 02/23/25 glipizide 10 mg tablet 10 mg PO DAILY 12/01/16 02/23/25 levothyroxine 100 mcg tablet 100 mcg PO DAILY 12/01/16 02/23/25 multivitamin with minerals (DAILY 1 ea PO DAILY 12/01/16 02/23/25 VITAMIN FORMULA-MINERALS tablet) losartan 100 mg tablet 100 mg PO DAILY 09/22/21 02/23/25 cyanocobalamin (vitamin B-12) 1,000 mcg PO DAILY 09/23/21 02/23/25 1,000 mcg capsule acetaminophen 500 mg tablet 500 mg PO Q6H PRN pain #60 tabs 05/30/22 02/23/25 aspirin 81 mg tablet 81 mg PO DAILY 10/29/24 02/23/25 insulin glargine 100 unit/mL 38 unit subcut HS 10/29/24 02/23/25 subcutaneous solution (Lantus U-100 Insulin) metformin 1,000 mg tablet 1,000 mg PO BID 10/29/24 02/23/25 famotidine 20 mg tablet 20 mg PO HS 01/01/25 02/23/25 Previous Rx's ?Medication ?Instructions ?Recorded acetaminophen 500 mg tablet 500 mg PO Q6H PRN pain #60 tabs 05/30/22 Allergies Allergy/AdvReac Type Severity Reaction Status Date / Time No Known Allergies Allergy Verified 02/23/25 19:57 General Stated Complaint: Nausea/Vomit/Diar LO: 3 Exam Narrative Exam Narrative: Gen: awake and alert, appears acutely ill HEENT: PERRL, EOMs full and without nystagmus. External ears and nose normal, mucous membranes dry Neck: Supple, full range of motion, no observable masses Lungs: No increased work of breathing, lung sounds clear and equal bilaterally without wheezes, rhonchi, or rales. CV: Heart with borderline tachycardic rate and regular rhythm, no murmurs auscultated. Strong and symmetrical radial pulses. Abdomen: Soft, nondistended, non-tender to palpation. No rigidity, rebound tenderness, or guarding. MSK: No joint swelling, no redness. Full ROM without limitation, no external traumatic findings. No peripheral edema Skin: No rashes or lesions to visualized skin. Normal color, warm, and dry. Neuro: Cranial nerves II-XII intact and symmetrical bilaterally. 5/5 strength in all muscle groups x4 extremities. No sensory deficits. Psych: Appropriate for situation. Course Vital Signs Vital signs: Vital Signs Temperature 36.3 C L 02/23/25 19:15 Pulse 100 H 02/23/25 19:15 Respiratory Rate 20 02/23/25 19:15 Pulse Oximetry 94 02/23/25 19:15 Temperature 36.3 C L 02/23/25 19:15 Temperature Source Tympanic 02/23/25 19:15 Pulse 100 H 02/23/25 19:15 Respiratory Rate 02/23/25 19:15 Blood Pressure Position Supine 02/23/25 19:15 Pulse Oximetry 94 02/23/25 19:15 Oxygen Delivery Method Room Air 02/23/25 19:15 Oxygen Flow Rate 0 02/23/25 19:15 Lab/Test Results Lab/Test Results: Laboratory Tests Range/Units 02/23/25 19:17 VBG pH (7.31-7.41) 7.25 L VBG pCO2 (41-51) mmHg 41 VBG pO2 mmHg 23 VBG HCO3 (23-28) mmol/L 18 L VBG Total CO2 (24-29) mmol/L 17 L VBG O2 Saturation % 32 VBG Base Excess (-2-3) mmol/L -9 L Medical Decision Making This is an 79-year-old female patient presenting for evaluation of nausea with vomiting and diarrhea, hyperglycemia, generalized weakness and hypotension. My differential includes but is not limited to DKA, HHS, euglycemic DKA (though the patient is not on empagliflozin or other culprit medications), certainly considered hypovolemic shock and dehydration, metabolic and electrolyte derangement, kidney and liver injury. The patient does not have any abdominal tenderness to suggest severe intra-abdominal pathology such as appendicitis, diverticulitis, bowel obstruction, pancreatitis, hepatitis, cholecystitis. Considered UTI, no respiratory symptoms to suggest pneumonia or bronchitis. I considered septic shock and bacteremia. The patient's history and physical are less concerning for obstructive or cardiogenic shock though I certainly considered these as well. Finally, the patient has no history of adrenal insufficiency, but does have a history of insulin-dependent diabetes and hypothyroidism which may suggest risk factors for autoimmune pathology. I obtained and reviewed an EKG, which shows a sinus tachycardia with a rate of 102, with no evidence of ischemia, interval abnormality, or ectopy. I will provide the patient with a second liter of IV fluids. Bedside POCUS reveals mildly reduced ejection fraction with no evidence of right heart dilation or strain, paracardial effusion, IVC is noted to be borderline plethoric at just under 2 cm with less than 50% respiratory variation. However, the bilateral lung apices do not show B-lines and I feel that the benefit of providing more fluids outweighs the risk at this time. We will obtain labs to include CBC, CMP, magnesium, troponin, lipase, BNP, VBG, urinalysis, and lactate. I will place an order for norepinephrine, given the persistently low pressures after the first liter of fluid. We will hold on initiation of this medication until the second liter has infused. - The patient required initiation of norepinephrine, blood pressures remained 67/40 after the second liter was completed. I was able to obtain some collateral from the patient's family member, who reports that the patient had rigors/chills yesterday and a recent exposure to a family member sick with a viral syndrome. The patient reports that she feels slight improvement after the fluid, and has remained mentating appropriately throughout. I reviewed the patient's laboratory studies as they became available. The white blood cell count is notably elevated to 26, with no anemia but a new thrombocytopenia to 90. VBG shows mild acidosis to 7.25 without associated hypercarbia. Her metabolic panel demonstrates significantly low magnesium at 1.0, her bicarb is only modestly decreased to 19.7, but her BUN and creatinine are significantly elevated compared to her baseline, 45 and 3.8 respectively. Glucose is 254. The patient has a mild transaminitis, initial troponin elevated to 77. She does have an elevation in her BNP to 21,000, no priors available, patient without history of heart failure or evidence of fluid overload peripherally on physical examination. We were able to get urine, which was dark and cloudy, and concerning for infection with large blood and pyuria, bacteria, and small ketones. Given the above-noted findings I am quite concerned for septic shock, likely with some secondary cardiac strain (type II NSTEMI), likely due to a urinary source though certainly intra-abdominal source cannot yet be ruled out. We will obtain blood cultures, provide the patient with a dose of Zosyn (4.5 g, should not be redosed until 12 hours given her renal function). I will provide her with a dose of stress dose steroids, and 4 g of magnesium over 4 hours. When hemodynamically appropriate we will obtain a Noncon CT of the chest abdomen and pelvis. - I independently reviewed the patient's imaging, radiology read not yet available for review. Most notable finding is a 5 mm left ureteral stone with associated left-sided hydronephrosis, concerning for infected stone. The patient's troponin stabilized without significant delta increase on 1 hour recheck, most likely type II NSTEMI in the setting of septic shock. The patient reports some generalized body aches, for which Tylenol will be provided. Her COVID and influenza swab was negative. Her blood pressure improved on norepinephrine, 12.5 mcg/min. I reached out to [facility], and discussed the case with the furniture salesperson team, who has graciously accepted this patient for transfer to their ICU for further management of her septic shock, urology referral and definitive management of her infected stone. They did recommend if her pressor needs were to escalate to initiate a second pressor and consider placing a central line. The patient will be transported by EMS, urgent at the facility designer level. Remained hemodynamically improved while under my care. Betzy Sears MD Critical Care Time Critical Care Time Critical Care Time: Yes Total Critical Care Time: 60 Attestation: Upon my evaluation, this patient had a high probability of imminent or life-threatening deterioration due to septic shock requiring vasopressors, which required my direct attention, intervention, and personal management. I have personally provided 60 minutes of critical care time exclusive of time spent on separately billable procedures. Time includes review of laboratory data, radiology results, discussion with consultants, and monitoring for potential decompensation. Interventions were performed as documented above. Betzy Sears MD [facility] All Active Problems (Updated 02/23/25 @ 22:49 by Betzy Sears MD) Thrombocytopenia (Chronic) Hypomagnesemia (Acute) Elevated brain natriuretic peptide (BNP) level (Acute) Elevated troponin (Acute) EDNA (acute kidney injury) (Acute) Acute UTI (Acute) Calculus of left ureter (Acute) Septic shock (Acute) Arthritis of right knee (Acute) Internal derangement of right knee (Acute) Steroid injection: 06/30/2024 Trochanteric bursitis, left hip (Acute) DEPO MEDROL 03/01/23 Hyperplastic colon polyp (Acute) Arthritis of carpometacarpal (CMC) joint of right thumb (Acute) Arthritis of carpometacarpal (CMC) joint of left thumb (Acute) Injection: 12/04/2018 Diarrhea (Acute) Encounter for colorectal cancer screening (Acute) Medical History (Updated 02/23/25 @ 22:49 by Betzy Sears MD) At risk for aspiration Aspirated during Colonoscopy in 2021 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 Tubular adenoma of colon (12/26/16) Depression Hypertension Hypothyroid Diabetes Surgical History (Updated 01/15/25 @ 08:51 by Taylor Ge) Hx of colonoscopy with polypectomy (~01/12/25) History of total left hip arthroplasty (05/30/22) Hx of appendectomy Tonsillectomy and adenoidectomy Oophrectomy, Both Abdominal hysterectomy Colonoscopy - MAC (12/26/16) 01/2022 Colonoscopy - IV Sedation 2006 Family History Mother CHF (congestive heart failure) Father CHF (congestive heart failure) Colon polyps Social History Smoking/Tobacco Use Status: Former Tobacco Use Quit Date: 06/04/81 Smoking risk assessment performed?: Yes Alcohol Intake: current Alcohol Intake frequency: 0-2 drinks per day Alcohol type: wine and hard liquor Drug use: Never Substance use type: does not use Housing: house Do you feel safe at home: Yes Do you feel safe in your relationship?: Yes POCUS Exam (ED) Limited Cardiac Exam DATE OF EXAM: 02/23/25 TIME OF EXAM: 19:47 PROVIDER THAT PERFORMED THE STUDY: Betzy Sears REASON FOR EXAM: Hypovolemic shock VISUALIZED STRUCTURES: Four Chambers, LVOT, Aortic valve, Mitral valve, Interventricular septum, IVC and Other structure: b/l lung apices VIEW OBTAINED: Apical 4-Chamber, Parasternal long-axis, Parasternal short-axis and Subxiphoid PERTINENT FINDINGS/IMPRESSION: LV dysfunction :mild and Plethoric IVC (Borderline); no IVC inspiratory collapsability, No pericardial effusion, No RV dilation and No RV dysfunction INCIDENTAL FINDINGS: Bilateral lung apices without B-lines Exam complete
[2025-02-23 19:51] LABS: Glucose Negative (Negative)
[2025-02-23 19:59] LABS: ALT 77 U/L (14-59); AST 50 U/L (15-37); Albumin 2.9 g/dL (3.4-5.0); Alkaline Phosphatase 61 U/L (46-116); Anion Gap 16.3 mmol/L (3-11); BUN 45 mg/dL (7-18); Bilirubin, Total 1.2 mg/dL (0.2-1.0); CO2 19.7 mmol/L (21.0-32.0); Calcium 8.6 mg/dL (8.5-10.1); Chloride 102 mmol/L (98-107); Estimated GFR 11.47 (mL/min/1.73m2); Glucose 254 mg/dL (74-106); Magnesium 1.0 mg/dL (1.8-2.4); NT-proBNP 21978 pg/mL (<300); Potassium 4.3 mmol/L (3.5-5.1); Sodium 138 mmol/L (136-145); Total Protein 5.5 g/dL (6.4-8.2)
[2025-02-23 20:00] LABS: Troponin I 77 ng/L (<or=51); WBC 26.15 10^3/uL (4.4-10.8)
--- NOTE | 2025-02-23 20:00 | DI.CT_ITS ---
Exam(s) CT CHEST/ABD/PEL WO EXAM: CT CHEST/ABD/PEL WO CLINICAL HISTORY: hypotension, N/V/D, diabetes. TECHNIQUE: Imaging Protocol: Axial computed tomography images with coronal and sagittal reformatted images were created and reviewed. Computer aided detection (CAD) was utilized. CONTRAST MATERIAL: Noncontrast COMPARISON: CT CT CHEST WO from 05/23/2023 FINDINGS: CHEST: Pulmonary parenchyma: Limited evaluation due to respiratory motion. No consolidation. No dominant measurable mass. Area of scarring posteromedial superior segment of the left lower lobe. Mild dependent changes. Stable benign-appearing nodules in the right lower lobe. Tracheobronchial tree: No bronchiectasis. No mucous plugging.No bronchial wall thickening. Pleura: No effusion or pneumothorax. Mediastinum: Within normal limits. Pulmonary arteries: No visible emboli. Cardiovascular: Heart is mildly enlarged. No pericardial effusion. Thoracic aorta non-dilated. Bones: Unremarkable for age. No lytic or blastic lesions. No compression fractures. Soft tissues: Unremarkable. ABDOMEN and PELVIS: Liver: Moderate hepatic steatosis. No suspicious mass. Gallbladder and biliary tract: No evidence of stones or wall thickening. No biliary dilatation. Pancreas: Somewhat atrophic. Normal density, no abnormal calcifications or inflammatory process. Spleen: Normal. Kidneys: Normal size, contour and axis. There is a 3 millimeter stone in the proximal left ureter causing [id number] hydronephrosis. There is mild perinephric stranding. No additional calculi. No suspicious masses seen. Adrenal glands: No masses seen. Aorta: Abdominal portion non-dilated. Lymph nodes: Within normal limits. Soft tissues: Unremarkable. Bladder: Nearly empty but unremarkable. Bowel: No obstruction or bowel wall thickening. Minimal sigmoid diverticulosis. No abnormal colonic distention. There is some fluid in the colon which could indicate diarrheal illness. No visible wall thickening. Peritoneal cavity: No ascites. No focal collection. No mesenteric inflammatory response. No free air. Bones: Left hip prosthesis. Degenerative changes and mild scoliosis in the spine. Reproductive organs: Hysterectomy. IMPRESSION: No acute abnormality in the chest. 3 millimeter stone in the proximal left ureter causing [id number] hydronephrosis. Mild amount of fluid within the colon without wall thickening could indicate diarrheal illness. The preliminary [facility] report was reviewed. RADIATION DOSE DELIVERED: 496.01mGy.cm Total DLP DATA REPOSITORY: All CT scans at this facility are submitted to the National Radiology Data Registry (NRDR) Dose Index Registry (DIR) with the [employer] (A[employer]). RADIATION OPTIMIZATION: All CT scans at this facility use at least one of these dose optimization techniques: automated exposure control; mA and/or kV adjustment per patient size (includes targeted exams where dose is matched to clinical indication); or iterative reconstruction.
[2025-02-23 20:05] LABS: Platelet Count 90 10^3/uL (130-400); RBC Morphology Normal
[2025-02-23 20:09] LABS: RBC >50 HPF (0-2); WBC >50 HPF (0-5)
[2025-02-23 20:11] LABS: C & S Indicated? Yes
[2025-02-23] MEDS: Hydrocortisone SOD SUC. 100 MG VIAL IVP (20:17)
[2025-02-23] MEDS: MAGNESIUM SULFATE 4 GM/100 ML BAG IV_INF (20:21)
[2025-02-23] MEDS: Norepinephrine in D5W 8 MG/250 ML BAG 9.4 MG IV (20:21)
[2025-02-23] MEDS: PIPERACILLIN/TAZO 4.5 GM in Normal Saline 100 ML IVPB (20:51)
[2025-02-23 21:06] LABS: Lipase 11 U/L (<78)
[2025-02-23 21:23] LABS: Troponin I 80 ng/L (<or=51)
[2025-02-23 21:46] LABS: COVID-19 PCR Negative (Negative); RSV PCR Negative (Negative)
[2025-02-23] MEDS: ACETAMINOPHEN 1,000 MG/100 ML BAG 400 MG IVPB (22:51)
[2025-02-23 23:15] LABS: Troponin I 78 ng/L (<or=51)
--- NOTE | 2025-02-23 23:52 | DI.VRAD_ITS ---
PROCEDURE INFORMATION: Exam: CT Chest Without Contrast; Diagnostic Exam date and time: 02/23/2025 9:23 PM Age: 79 years old Clinical indication: Nausea and vomiting; Other: Hypotension, n/v/d, diabetes; Prior surgery; Surgery date: 6+ months; Surgery type: Appendectomy, hip replacement TECHNIQUE: Imaging protocol: Diagnostic computed tomography of the chest without contrast. 3D rendering (Not supervised by radiologist): MIP and/or 3D reconstructed images were created by the technologist. COMPARISON: CT CHEST WO 05/23/2023 3:38 PM FINDINGS: Thyroid: No thyroid lesions. No thyroid enlargement. Trachea: The central airways clear. Lungs: Bibasilar atelectasis versus pneumonia. Pleural spaces: Unremarkable. No pneumothorax. No pleural effusion. Heart: No cardiomegaly or pericardial effusion. Coronary arteries: No coronary calcifications. Lymph nodes: No axillary adenopathy. Vasculature: Unremarkable. No aortic aneurysm. Bones/joints: Unremarkable. No acute fracture. Soft tissues: Soft tissues are unremarkable as visualized. IMPRESSION: Bibasilar atelectasis versus pneumonia. PROCEDURE INFORMATION: Exam: CT Abdomen And Pelvis Without Contrast Exam date and time: 02/23/2025 9:23 PM Age: 79 years old Clinical indication: Nausea and vomiting; Other: Hypotension, n/v/d, diabetes; Prior surgery; Surgery date: 6+ months; Surgery type: Appendectomy, hip replacement TECHNIQUE: Imaging protocol: Computed tomography of the abdomen and pelvis without contrast. 3D rendering (Not supervised by radiologist): MIP and/or 3D reconstructed images were created by the technologist. COMPARISON: CR XR HIP LT COMPLETE AP PELVIS 06/12/2022 1:21 PM FINDINGS: Lungs: Bibasilar atelectasis versus pneumonia. Liver: There is a diffuse decrease in hepatic parenchymal density, consistent with fatty infiltration. Gallbladder and biliary ducts: No gallstones. Nondistended. No wall thickening. Pancreas: The pancreas is unremarkable. Spleen: No splenomegaly. No lesions. Adrenal glands: The adrenal glands are unremarkable. Kidneys and ureters: There is a 3 mm obstructing left proximal ureter renal stone causing moderate hydronephrosis. Nonspecific perinephric edema. Stomach and bowel: No evidence of bowel obstruction. No pericolonic inflammatory stranding. Colonic diverticulosis without evidence of diverticulitis. Appendix: There has been an appendectomy. Intraperitoneal space: Unremarkable. No free air. No significant fluid collection. Vasculature: Unremarkable. No abdominal aortic aneurysm. Lymph nodes: Unremarkable. No enlarged lymph nodes. Urinary bladder: No focal wall thickening of the urinary bladder. Reproductive: Unremarkable as visualized. Bones/joints: Left hip prosthesis noted. No evidence of malalignment. The lumbar spine demonstrates moderate degenerative changes at multiple levels. Soft tissues: Soft tissues are unremarkable as visualized. IMPRESSION: There is a 3 mm obstructing left proximal ureter renal stone causing moderate hydronephrosis. Chronic noncritical findings as described above. Dictated and Authenticated by: Elissa Blue MD. Orderin [facility]. Leroy Bo MD
--- NOTE | 2025-02-26 09:29 | NUR.NOTE ---
Accessed Pt chart to located Antibiotics given to the Pt. However Pt was transferred to [facility]. I will call there to locate which dept the PT is in and fax it to them.
== END 2025-02-24 00:05 | disposition short-term general hospital (02) ==
PROVIDERS: Emergency Provider Emergency Medicine; PCP Family Medicine
DX: N17.9 Acute kidney failure, unspecified (principal); N20.1 Calculus of ureter; N39.0 Urinary tract infection, site not specified; A41.9 Sepsis, unspecified organism; R65.21 Severe sepsis with septic shock; R79.89 Other specified abnormal findings of blood chemistry; E83.42 Hypomagnesemia
CPT/HCPCS: 36415; 71250; 80053; 82805; 83690; 87040; 87077; 87637; 93005; 93308; 96361; 96365; 96366; 96368; 96375; 99291; 74176; 81003; 81015; 83605; 83735; 83880; 84484; 85025; 87086; 87186; 93010; J0131; J1720; J2543; J3475

== ENCOUNTER 2025-03-09 14:29 | Outpatient (REF) | payer MEDICARE, SELFPAY ==
[2025-03-09 16:28] LABS: Anion Gap 9.7 mmol/L (3-11); BUN 21 mg/dL (7-18); CO2 25.3 mmol/L (21.0-32.0); Calcium 8.7 mg/dL (8.5-10.1); Chloride 103 mmol/L (98-107); Estimated GFR 45.76 (mL/min/1.73m2); Glucose 114 mg/dL (74-106); Potassium 4.7 mmol/L (3.5-5.1); Sodium 138 mmol/L (136-145)
== END 2025-03-09 14:30 | disposition home or self-care (01) ==
LOC: NCHCN 14:29
PROVIDERS: PCP Family Medicine; Visit Provider Family Medicine
DX: N17.9 Acute kidney failure, unspecified (principal)
CPT/HCPCS: 80048

== ENCOUNTER 2025-05-08 09:39 | Outpatient (REF) | payer MEDICARE, SELFPAY ==
[2025-05-08 16:02] LABS: HCT 38.1 % (36.0-46.0); HGB 12.8 g/dL (11.2-15.7); MCH 32.0 pg (27.0-33.0); MCHC 33.6 % (32.0-36.0); MCV 95 fL (80-95); MPV 10.6 fL (8.0-11.0); Platelet Count 214 10^3/uL (130-400); RBC 4.00 10^6/uL (3.93-5.22); RDW 12.8 % (11.7-14.6); RDW-SD 45.0 fL; WBC 5.17 10^3/uL (4.4-10.8)
[2025-05-08 16:40] LABS: ALT 32 U/L (10-49); AST 30 U/L (<34); Albumin 3.9 g/dL (3.2-5.0); Alkaline Phosphatase 63 U/L (46-116); Anion Gap 9.3 mmol/L (3-11); BUN 23 mg/dL (9-23); Bilirubin, Total 0.80 mg/dL (0.2-1.2); CO2 29.7 mmol/L (20.0-31.0); Calcium 9.3 mg/dL (8.3-10.6); Chloride 104 mmol/L (98-107); Glucose 172 mg/dL (74-106); Potassium 4.2 mmol/L (3.5-5.1); Sodium 143 mmol/L (136-145); Total Protein 6.0 g/dL (5.7-8.2)
== END 2025-05-08 09:40 | disposition home or self-care (01) ==
LOC: NCHCN 09:39
PROVIDERS: PCP Family Medicine; Visit Provider Family Medicine
DX: Z01.818 Encounter for other preprocedural examination (principal)
CPT/HCPCS: 80053; 85027

== ENCOUNTER 2025-05-25 12:11 | Outpatient (CLI) | payer MEDICARE, SELFPAY ==
--- NOTE | 2025-05-25 12:00 | DI.RAD_ITS ---
Exam(s) XR STANDING ALIGNMENT XR KNEE RT 1V EXAM: XR STANDING ALIGNMENT and XR knee RT 1 V CLINICAL HISTORY: PRE OP R TKA. TECHNIQUE: 2D digital imaging was performed. Five images were obtained. COMPARISON: CR XR HIP LT COMPLETE AP PELVIS from 06/12/2022 CR XR KNEE RT 4V AP,LAT,GARETT,PAT from 06/30/2024 Delete FINDINGS: BONES: There are stable postsurgical changes of a left total hip arthroplasty. There is a small joint effusion in the right knee. There is joint space narrowing in the femoral tibial joint. There is also mild joint space narrowing in the left knee. The ankles are well maintained.There is no significant leg length discrepancy. SOFT TISSUE: Normal. IMPRESSION: Osteoarthritis of the knees characterized by joint space narrowing. DATA REPOSITORY: RADIATION DOSE DELIVERED:
== END 2025-05-25 12:12 | disposition home or self-care (01) ==
PROVIDERS: PCP Family Medicine; Visit Provider Physician Assistant
DX: Z01.818 Encounter for other preprocedural examination (principal); M17.11 Unilateral primary osteoarthritis, right knee
CPT/HCPCS: 99024; 73560; 77073

== ENCOUNTER 2025-06-02 06:02 | Day surgery (SDC) | payer MEDICARE, SELFPAY ==
[2025-06-02] VITALS (32 sets, daily range): BP systolic 117–149; BP diastolic 49–73; PULSE 65–92; RESP 13–24; TEMP 36.2–36.6; O2SAT 91–100; BMI 22.3
[2025-06-02] MEDS: Celecoxib 200 MG CAP 400 MG PO (06:24)
[2025-06-02] MEDS: Acetaminophen 500 MG TAB 1000 MG PO (06:24)
[2025-06-02] MEDS: Gabapentin 300 MG CAP PO (06:25)
[2025-06-02] MEDS: Lactated Ringers 1,000 ML 80 ML IV (06:40)
--- NOTE | 2025-06-02 06:47 | W.ANESPRE ---
General Info Date of Service Date Performed: 06/02/25 Height: 5 ft 10 in Weight: 70.5 kg Body Mass Index (BMI): 22.3 Surgical Procedure: Operation Date: 06/02/25 07:40 Proposed Procedure Side Surgeon p Knee Total Arthroplasty w/OrthAlign Right Yannick Coyne MD Meds Allergies and Home Medications Allergies Allergy/AdvReac Type Severity Reaction Status Date / Time No Known Allergies Allergy Verified 06/02/25 06:14 Home Medication ?Medication ?Instructions ?Recorded citalopram 10 mg tablet (Celexa) 20 mg PO DAILY 12/01/16 levothyroxine 100 mcg tablet 100 mcg PO DAILY 12/01/16 multivitamin with minerals (DAILY 1 ea PO DAILY 12/01/16 VITAMIN FORMULA-MINERALS tablet) cyanocobalamin (vitamin B-12) 1,000 mcg PO DAILY 09/23/21 1,000 mcg capsule insulin glargine 100 unit/mL See Rx Instructions subcut HS 10/29/24 subcutaneous solution (Lantus U-100 Insulin) famotidine 20 mg tablet 20 mg PO HS 01/01/25 metformin 1,000 mg tablet 500 mg PO BID 05/25/25 semaglutide 0.25 mg or 0.5 mg (2 0.5 mg subcut QWEEK 05/25/25 mg/3 mL) subcutaneous pen injector (Ozempic) acetaminophen 500 mg tablet 1,000 mg (2 x 500 mg) PO Q8H PRN 06/02/25 pain #90 tabs aspirin 81 mg tablet,delayed 81 mg PO BID 30 days #60 tabs 06/02/25 release celecoxib 200 mg capsule (Celebrex) 200 mg PO BID PRN #60 caps 06/02/25 dexamethasone 4 mg tablet 4 mg PO DAILY #2 tabs 06/02/25 docusate sodium 100 mg capsule 100 mg PO BID #28 caps 06/02/25 (Colace) gabapentin 300 mg capsule 300 mg PO QHS #14 caps 06/02/25 oxycodone 5 mg tablet 5 mg PO Q4H PRN #18 tabs 06/02/25 Current Visit Medications: Current Medications Generic Name Dose Route Start Last Admin Trade Name Freq PRN Reason Stop Dose Admin Acetaminophen 1,000 mg 06/02/25 06:00 06/02/25 06:24 Acetaminophen 500 Mg Tab PO 06/02/25 23:59 1,000 mg PREOP JEFFERY Administration Celecoxib 400 mg 06/02/25 06:00 06/02/25 06:24 Celecoxib 200 Mg Cap PO 06/02/25 23:59 400 mg PREOP JEFFERY Administration Gabapentin 300 mg 06/02/25 06:00 06/02/25 06:25 Gabapentin 300 Mg Cap PO 06/02/25 23:59 300 mg PREOP JEFFERY Administration Ringer's Solution 1,000 mls @ 80 mls/hr 06/02/25 06:00 IV 06/02/25 23:59 INFUSION JEFFERY Cefazolin Sodium/Dextrose 2 gm in 50 mls @ 100 mls/hr 06/02/25 06:00 Ancef Duplex IVPB 06/02/25 23:59 PREOP JEFFERY Tranexamic Acid/Sodium Chloride 1,000 mg in 100 mls @ 600 mls/hr 06/02/25 06:00 IVPB 06/02/25 23:59 PREOP JEFFERY Sodium Chloride 0 ml 06/02/25 06:00 Normal Saline Flush 10 Ml Syr IV 06/02/25 23:59 PRN PRN Sodium Chloride 0 ml 06/02/25 06:00 Normal Saline 10 Ml Vial IJ 06/02/25 23:59 DIRECTED PRN Sterile Water 0 ml 06/02/25 06:00 Water,Injection,Sterile 10 Ml Vial IJ 06/02/25 23:59 DIRECTED PRN PFSH Active Problems Active Problems: Problem Status Onset Code Arthritis of right knee Acute M17.11 Internal derangement of right knee Acute M23.91 Trochanteric bursitis, left hip Acute M70.62 Hyperplastic colon polyp Acute K63.5 Arthritis of carpometacarpal (CMC) joint of right thumb Acute M18.11 Arthritis of carpometacarpal (CMC) joint of left thumb Acute M18.12 Diarrhea Acute R19.7 Encounter for colorectal cancer screening Acute Z12.11, Z12.12 Medical History Medical History At risk for aspiration Aspirated during Colonoscopy in 2021 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 Confirmed at pre-op admission 05/30/22 . Surgical History Surgical History Hx of colonoscopy with polypectomy (~01/12/25) History of total left hip arthroplasty (05/30/22) Hx of appendectomy Tonsillectomy and adenoidectomy Oophrectomy, Both Abdominal hysterectomy Colonoscopy - MAC (12/26/16) 01/2022 Colonoscopy - IV Sedation 2006 Tobacco Smoking/Tobacco Use Status: Former Tobacco Use Passive smoking exposure: No Alcohol Alcohol Intake: current Alcohol intake frequency: 0-2 drinks per day Alcohol type: wine and hard liquor Substance Use Substance use: Never Substance use type: does not use Details: alcohol: t-1, 1 drink Vital Signs and Lab Results Vital Signs Most Recent Vital Signs in EMR: Most Recent Vital Signs Temp Pulse Resp BP Pulse Ox 36.3 C L 89 18 149/69 H 97 06/02/25 06:20 06/02/25 06:20 06/02/25 06:20 06/02/25 06:20 06/02/25 06:20 Point of Care Results Point of Care Results: Finger Stick Blood Glucose 265 06/02/25 06:37 Lab Results Complete Blood Count: WBC, (4.4-10.8) 5.17 10^3/uL 05/08/25, 09:25 RBC, (3.93-5.22) 4.00 10^6/uL 05/08/25, 09:25 Hgb, (11.2-15.7) 12.8 g/dL 05/08/25, 09:25 Hct, (36.0-46.0) 38.1 % 05/08/25, 09:25 Plt Count, (130-400) 214 10^3/uL 05/08/25, 09:25 Complete Metabolic Panel: Sodium, (136-145) 143 mmol/L 05/08/25, 09:25 Potassium, (3.5-5.1) 4.2 mmol/L 05/08/25, 09:25 Chloride, (98-107) 104 mmol/L 05/08/25, 09:25 Carbon Dioxide, (20.0-31.0) 29.7 mmol/L 05/08/25, 09:25 BUN, (9-23) 23 mg/dL 05/08/25, 09:25 Creatinine, (0.55-1.02) 1.12 mg/dL H 05/08/25, :25 Est GFR (CKD-EPI 2020), (mL/min/1.73m2) 46.74 05/08/25, : Calcium, (8.3-10.6) 9.3 mg/dL 05/08/25, : Albumin, (3.2-5.0) 3.9 g/dL 05/08/25, : Glucose, (74-106) 172 mg/dL H 05/08/25, :25 Liver Function Panel: ALT, (10-49) 32 U/L 05/08/25, : AST, (<34) 30 U/L 05/08/25, : Imaging and Studies Imaging and Studies Study information below may be from another EMR and interpreted by another provider. Please see original notes in EMR for more complete details. EKG Summary: 02/23/25: Exam: Resting ECG Reason for Exam: Diabetic Emergency Patient Location: E HR:102 bpm ECG Measurements Heart Rate 102 AXIS MA 156 P 56 QRSd 91 QRS 26 QT 351 T26 QTc 458 Conclusion Sinus tachycardia, rate 102 No interval abnormalities No STEMI No priors available for comparison I have reviewed and I agree with the emergency room physician's ECG interpretation. Anesthesia Assessment and Plan Anesthesia History Personal History: Other Family History: No Family History of Anesthesia Complications Exercise Tolerance Exercise Tolerance: Metabolic Equivalents>4 Cardiac & Pulmonary Exam Cardiac Exam: Normal S1/S2 Heart Sounds Pulmonary Exam: Clear Bilateral Breath Sounds Implantable Cardiac Device Does patient have a Pacemaker or an ICD?: No Airway Exam Known Difficult Airway: No Mallampati Class: 3 Mouth Opening: Normal (> 3cm) Thyromental Distance: Greater than 3 cm Neck Range of Motion: Full ROM Neck Circumference: Normal Teeth Condition: Normal Dentition ASA Classification ASA Score: ASA 3 Emergency Case?: No NPO Status NPO Status: NPO Clears >2 hours, Solids >8 hours Anesthesia Plan Resuscitation Status: Full Code Anesthesia Technique: General Anesthesia Airway Planned: Endotracheal Tube Pain Management: Surgeon and patient request nerve block Monitors Used: Standard Monitors and SedLine
--- NOTE | 2025-06-02 07:00 | W.PM.DSUDISC ---
Date of service: 06/02/25 Discharge Plan Disposition Patient Disposition: Home Condition: Good Discharge Details Reason For Visit: Right knee DJD Attending Provider: Yannick Coyne Primary Care Provider: Jackie Long Home Meds and New Rx's Prescriptions: New acetaminophen 500 mg tablet 1,000 mg PO Q8H PRN Qty: 90 0RF Rx Instructions: Take two tablets up to every 8 hours as needed for pain aspirin 81 mg tablet,delayed release (DR/EC) 81 mg PO BID 30 Days Qty: 60 0RF celecoxib [Celebrex] 200 mg capsule 200 mg PO BID PRNQty: 60 0RF Rx Instructions: Take one tablet twice daily for pain and inflammation docusate sodium [Colace] 100 mg capsule 100 mg PO BID Qty: 28 0RF dexamethasone 4 mg tablet 4 mg PO DAILY Qty: 2 0RF Rx Instructions: Take one tablet once daily for two days gabapentin 300 mg capsule 300 mg PO QHS Qty: 14 0RF Rx Instructions: Take one tablet at bedtime oxycodone 5 mg tablet 5 mg PO Q4H PRNQty: 18 0RF Rx Instructions: Take one tablet up to every 4 hours as needed for severe postoperative pain Continued cyanocobalamin (vitamin B-12) 1,000 mcg capsule 1,000 mcg PO DAILY Ozempic 0.25 mg or 0.5 mg (2 mg/3 mL) pen injector 0.5 mg subcut QWEEK citalopram [Celexa] 10 MG tablet 20 mg PO DAILY levothyroxine 100 MCG tablet 100 mcg PO DAILY DAILY VITAMIN FORMULA-MINERALS 1 EACH tablet 1 ea PO DAILY insulin glargine [Lantus U-100 Insulin] 100 unit/mL solution See Rx Instructions subcut HS Patient Comments: Patient states the dose now varies related to what her blood glucose number is. 18 units used 06/01/25 Rx Instructions: 1-38 units subcutaneously bedtime; metformin 1,000 mg tablet 500 mg PO BID famotidine 20 mg tablet 20 mg PO HS Discontinued aspirin 81 mg tablet 81 mg PO DAILY acetaminophen 500 mg tablet 500 mg PO Q6H PRN (Reason: pain) Qty: 60 2RF Discharge Instructions Additional Instructions: Total Knee Discharge Instructions Activity: The most important activity is to walk and to work on gentle motion (both flexion and extension). You should try to take short walks a few times a day. It is important that when resting you work on keeping the knee straight. Avoid putting a pillow behind the knee as this will encourage flexion. Work on range of motion exercises as provided by Physical Therapy. - Start outpatient physical therapy within 2 weeks. - You should wear the WENCESLAO hose on both legs for 2 weeks. You may remove these at night. You may also use any compression sock in place of the WENCESLAO hose. - Utilize [employer] to review exercises, see videos on exercises and obtain basic information pertaining to your surgery and your recovery. Dressing: Remove the Ziggy wrap by 2 days after your surgery and put on the WENCESLAO stocking given to you from the hospital. Keep the surgical dressing (underneath the ZIGGY wrap) in place for at least one week. After the first week it may be removed and replaced with light gauze and tape or nothing. The wound and dressing may get wet after 3 days but avoid soaking the dressing or otherwise it will need to be changed. Many people prefer covering the dressing with cling wrap (saran wrap) to minimize it from getting soaked. If it gets wet, just pat dry. If it starts to peel off then it will need to be changed. Medications: - You should take Tylenol and anti-inflammatory Celebrex as your primary pain control medications. If the Celebrex is too expensive or not covered, please call the office for another alternative (Advil/Ibuprofen or Naproxen/Aleve) - You have been prescribed a stronger pain medication Oxycodone for breakthrough pain, take as needed as prescribed. - You take Famotidine at baseline - continue with this medication to help reduce stomach acid and reflux. - You have been prescribed Gabapentin to take at night for restlessness and nerve pain. - You will be taking Aspirin 81mg twice a day for DVT prevention unless instructed otherwise. - You have also been prescribed Decadron to take to control post-operative nausea and pain. You will start this tomorrow. - If you have constipation you should take Colace (which has been prescribed) or Miralax (which is available [id number]). It takes most people 3-4 days to have a bowel movement. Follow-up: 2 weeks If you have any acute concerns or questions, please do not hesitate to contact the office at [phone]. You may contact Dr. Coyne with any questions after hours through the hospital at [phone] or on his cell phone at [phone]. Stand Alone Forms: Anesthesia Discharge Inst., Bina.Nerve Block Instructions, Konrad Coronado (DSU), Portal Information Referrals: Yannick Coyne MD [ [facility] STAFF PHYSICIAN, Orthopaedic Surgical] - 06/15/25 1:30 pm Equipment/Supplies: Walker Activity:: Elevate Remove Dressings/Wound Care:: Do Not Remove Shower/Bathe:: Cover Diet:: As Tolerated Discharge Orders Discharge Orders: Discharge Order (Routine); Ordered 06/02/25 Ordered By: Yannick Coyne
[2025-06-02] MEDS: ceFAZolin 2 GM/50 ML BAG IVPB (07:34)
[2025-06-02] MEDS: TRANEXAMIC ACID/SOD. CHL. 1,000 MG/100 ML BAG 600 MG IVPB (07:45)
[2025-06-02] MEDS: ROPIvacaine/EPI/CLONIDINE/KET 50 ML SYRINGE IJ (08:02)
--- NOTE | 2025-06-02 08:12 | W.ANESNERVE ---
Nerve Block Single Injection Procedure Date and Time Date Performed: 06/02/25 Procedure Start: 07:22 Location Where Procedure Performed Procedure Location: Day Surgery Unit Reason Performed: Postoperative Analgesia Requesting Provider: Yannick Coyne Timeout Performed Timeout Performed: Yes Monitoring Used ECG, Blood Pressure, SpO2 and See EMR for corresponding vital signs Sterility Sterility: Hand Hygiene, Surgical Cap, Surgical Mask, Sterile Gloves and Chlorhexidine Sedation Given During Procedure Sedation Given (Indicate Dose Given): Precedex IV Dose:: 8 mcg Patient Mental Status Patient Mental Status: Awake Nerve Block 1st Nerve Block: Laterality: Right Block Type: Adductor Canal Ultrasound Image Saved?: Yes Needle / Catheter Used: 100mm SonoPlex II Local Anesthetic Bolus (Indicate Dose Given): Lidocaine used for local infiltration of skin, Injected in 3-5ml increments after negative blood aspiration, Bupivacaine 0.25% Dose:: 10mL and Exparel Dose:: 10mL Additives (Indicate Dose Given): None Ultrasound: Sterile probe cover and gel used Nerve Stimulator: Supplement to Ultrasound use and No twitch or parasthesia noted < 0.5 mA Paresthesia: None Procedure Tolerated: No Complications and Patient tolerated well Procedure Outcome: Successful Performed By: Jenise Alejo
[2025-06-02] MEDS: Tranexamic Acid 650 MG TAB 1300 MG PO (10:12)
--- NOTE | 2025-06-02 10:26 | W.PM.OP ---
Operative Note Operative Note PRE-OP DIAGNOSIS: Right Knee Osteoarthritis POST-OP DIAGNOSIS: same PROCEDURE: Right Total Knee Replacement with Intraoperative Navigation SURGEON: Yannick Coyne ANESTHESIA TYPE: General LMA/ETT Refer to Anesthesia Record ESTIMATED BLOOD LOSS: 250 PATHOLOGY: none sent TOURNIQUET TIME: 0 COMPLICATIONS: None Patient was transported to: PACU Patient's condition: stable Implants: 1. Depuy Attune Cementless Cruciate Retaining Femoral Component, Size 6 Narrow 2. Depuy Attune Cementless Fixed Bearing Tibial Component, Size 5 3. Depuy Attune 6x7mm CR/FB Poly 4. Depuy Attune Patellar Component, Size 38 mm Indications: I have seen Marc in clinic for symptoms of RIGHT knee arthritis, confirmed with radiographic findings. Marc has exhausted nonoperative methods and was having significant limitations in daily function and desired better function and less pain. I discussed the technical details of a knee replacement. I explained the risks of the procedure to include, but not limited to, bleeding, infection, pain, stiffness, fracture, damage to nerves and vessels, damage to muscles and tendons, loosening, need for repeat procedure, blood clot and cardiopulmonary demise. Despite these risks, she elected to proceed. Findings: There was significant signs of arthritis throughout the knee, mostly involving the lateral compartment. There is full-thickness cartilage loss over the apex of the patella. Procedure Description: Radha was greeted in the preoperative holding area where the correct side was identified and marked. The consent was reviewed with the patient and signed. The history and physical was updated. All questions were answered. Preoperative mediacations were administered: Acetaminophen 1000mg, Celebrex 400mg, and Gabapentin 300mg. An adductor canal block was then administered by the anesthesia team in the DSU. Radha was taken back to the operating room. A general anesthestic was then administered. The patient was placed into the supine position on the operating room table. Posts were placed for positioning during the procedure. All bony prominences were well padded. Prophylactic antibiotics in the form of Cefazolin were administered. 1g of Tranxemic Acid was given intravenously within 30 minutes of incision. The right leg was then prepped with Chloraprep and draped in a standard fashion with impervious stockinette. A second prep with Chloraprep was performed prior to application of Iodine impregnated skin protection. A timeout to confirm correct identity, side and site, procedure, allergies, anesthesia, and medical concerns was performed. With the knee in some flexion, a midline incision was made overlying the knee. Full thickness skin flaps were raised once the extensor mechanism was encountered. These were raised medially and laterally. Any bleeding was controlled with electrocautery. Once the extensor mechanism was fully exposed, a medial parapatellar arthrotomy was performed in a flexed position. All bleeding from the arthrotomy and the geniculate arteries was coagulated. A medial subperiosteal peel was performed with electrocautery to the midcoronal plane. The fat pad was removed while keeping the patellar tendon protected. The anterior distal femur synovium was removed for later visualization. The ACL and PCL were resected and the anterior horn of the lateral meniscus was transected. The knee was then flexed with the patella everted. Large osteophytes from the tibia were removed. Large osteophytes from the femur were removed. A single starting pin was then placed 1cm anterior to the PCL insertion and the notch in the direction of the femoral head. The OrthoAlign device was applied over the pin. It was oriented to be in line with the epicondylar axis and the trochlear groove. It was then pinned into place. The navigation computer was then turned on and calibrated. The distal femur cut was set at 0 degrees varus and 3.5 degrees flexion. The distal femur cutting guide then was positioned for a 9mm cut. The distal femur was cut with an oscillating saw while protecting the soft tissues. The tibia was then addressed. The OrthoAlign device was placed over the tibial tubercle and medial tibia and secured into position. Once again, OrthoAlign was calibrated and then set for a 0 degree varus cut and 5.5 degrees of posterior slope. With this locked into position, the cut thickness stylus was used to assess cut thickness. The lateral side, most involved side, was set for a 6mm cut. This was then held in position and pinned into place with 2 additional pins and a cross pin for stability. The medial and lateral collateral ligaments were protected and the cut was performed. With this completed, it was assessed and noted to be of appropriate dimensions. The guide and OrthoAlign was removed. A spacer block was inserted and the knee was brought into extension to ensure enough space was present. . The Orthoalign gap balancing device was then placed in extension. This was used to ensure that the ligaments were properly balanced with up to 2 to 3 mm laxity laterally compared medially. The extension gap was measured as 19mm. The knee was then brought into 90 degrees of flexion and the ligament press tender incendiary grenade was once again placed. Under the same amount of force the flexion gap was measured. The Attune specific jig was placed and the flexion gap was made to match the extension gap. The femur was then sized as a size 6 narrow. The 4-in-1 cutting guide was the placed. An eddie wing was used to confirm appropriate position of the anterior cut to avoid notching. This cutting guide was ensured to be flush on the cut surface and then pinned into place with headed pins. While protecting the soft tissues, quad tendon, and collateral ligaments, the anterior and posterior cuts were performed with a saw. The central two pins were removed and the posterior and anterior chamfers were cut next. The notch-cutting guide was placed. This was pinned to lateralize the femoral component as much as possible while keeping it flush on the cut surface. This was then pinned into position. A saw was used to make the notch cut. A rasp smoothed the cut surfaces. The medial and lateral menisci were removed. A trial femoral component was then inserted, impacted down to the cut surfaces, and the lug holes were drilled. A provisional trial tibial component was placed and the knee was brought through range of motion. There was noted to be excellent extension and flexion. There was no significant instability. The patella was tracking without thumbs. A size 7mm polyethylene component provided the best range of motion and stability with less than 2mm gapping with medial and lateral stress and full extension without significant hyperextension. The tibial cut surface was fully exposed. The tibia was then sized as a 5. The tibia had been previously marked during trialing to correspond to the center of the tibial component to help with rotation. The trial was aligned to this lali, approximately rotated to the medial 1/3rd of the tibial tubercle. The trial was pinned into place. The tibia was prepared with a reamer and a keel punch and lug holes. The knee was then brought into extension and the patella was measured as 24mm. Using the patellar clamp and cut guide, this was resected to a flat surface with at least 13mm of thickness remaining. The size 38mm patella fit the best. This was oriented and then clamped into position. The lugs were drilled. The trial components were removed. The final components were opened on the back table. The periosteal and capsular tissues, especially posteriorly, around the knee were then systematically injected with a periarticular cocktail consisting of 246mg of Ropivacaine, 0.5mg of Epinephrine, 0.08mg of Clonidine, and 30mg of Ketorolac, diluted to 100cc. On the back table, with the implants opened, the cement was mixed. One batch of high viscosity cement was prepared with vacuum assistance. After the cement was ready a small amount was placed on the cut surface of the patella and the patellar button was clamped into position and held. Then, the knee components were placed. Starting with the tibial component, the tibia was subluxed anteriorly and the lug holes of the component were lined up. The tibia was then impacted with an impactor and mallet until the tibial component was in contact with the tibia. Then, the femoral component was inserted. The lug holes were aligned and the component was impacted into position. The final polyethylene component was inserted. The knee was irrigated with Surgiphor Betadine solution. This was allowed to sit in the knee for 3 minutes and then it was thoroughly irrigated out with saline. After the cement had finally cured, approximately 15min, the clamp was removed from the patella. The knee was then taken through range of motion. The patella was tracking with a no-thumbs technique. A complete synovectomy of the patella was performed. Any prominence to the lateral facet was resected with a rongeur. The capsule was then reapproximated with a No. 1 Vicryl at multiple locations. The capsule was finally closed with a No. 2 Stratafix, barbed suture. Deep tissues were then reapproximated with 0 Vicryl and 2-0 Vicryl. The skin was closed with a running 3-0 Monocryl in a subcuticular fashion. This was reinforced with skin glue. A Mepilex silver dressing was applied along with a [id number] LILIANA wrap. A CryoCuff was applied. Marc was transferred to the hospital bed without difficulty an suffering no apparent complication. Marc has a good prognosis. Physical therapy will start today and without restrictions, weight-bearing as tolerated. Aspirin 81mg BID will be used for DVT prophylaxis. Date of Procedure: 06/02/25
--- NOTE | 2025-06-02 11:06 | W.ANESPOSTOP ---
Postoperative Evaluation Date, Time and Location Date Performed: 06/02/25 Time Performed: 10:05 Patient Location: PACU Vital Signs Most Recent Imported Vital Signs: Most Recent Vital Signs Temp Pulse Resp BP Pulse Ox 36.3 C L 85 20 124/58 L 97 06/02/25 10:14 06/02/25 10:14 06/02/25 10:14 06/02/25 10:14 06/02/25 10:14 Pain Score Most Recent Pain Score: Most Recent Pain Score Pain Level 0 06/02/25 10:14 Assessment Mental Status: Awake (Alert & Oriented to Patient Baseline) Airway and Respiratory Function: Patent airway with normal (patient baseline) respiratory exam Cardiovascular Function: Hemodynamically Stable Hydration Status: Adequately Hydrated Nausea & Vomiting: No Nausea or Vomiting Pain: Pt. Denies Any Pain Peripheral Nerve Block: Regional nerve block not resolved at time of post operative discharge
--- NOTE | 2025-06-02 11:09 | PT.INIE ---
PT Notes Visit Reasons: Right knee DJD Physical Therapy Day Surgery Initial Evaluation Date: 06/02/2025 Referring Doctor: Dr Coyne, Laura Clayton PATHOLOGY LABORATORY DIRECTOR PT Orders: PT CONSULT:s/p Ortho surgery Precautions: WBAT RLE , Patient Profile/Admitting Diagnosis: Pt is an 79 yo female referred to PT s/p elective right TKA under general anesthesia and peripheral nerve block by Dr Coyne on 06/02/2025 Post op uncomplicated PMHX: Arthritis of right knee (Acute) Internal derangement of right knee (Acute) Steroid injection: 06/30/2024 Trochanteric bursitis, left hip (Acute) DEPO MEDROL 03/01/23 Hyperplastic colon polyp (Acute) Arthritis of carpometacarpal (CMC) joint of right thumb (Acute) Arthritis of carpometacarpal (CMC) joint of left thumb (Acute) Injection: 12/04/2018 Diarrhea (Acute) Encounter for colorectal cancer screening (Acute) Medical History (Updated 03/27/25 @ 00:03 by ROSEANN PETERSON) At risk for aspiration Aspirated during Colonoscopy in 2021 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 She will be going to her sisters home with 1 JAMEE without rail then will be on 1 level. Independent prior to surgery with amb, ADL driving, shopping, med management and meals. 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 Objective: [] General Observation: female semireclined on stretcher with cryocuff to right knee, Mental Status: A+Ox4, cooperative able to follow instructions agreeable to participate in assessment Pain: right knee aches back of knee with WB ROM: [] Right Upper Extremity: WNL Left Upper Extremity: WNL Right Lower Extremity: WNL except knee 0-96 degrees Left Lower Extremity: WNL Strength: [] Right Upper Extremity: 5/5 Left Upper Extremity: 5/5 Right Lower Extremity: Hip flexion: 3- /5; hip abduction: 3-/5; hip extension: 3- /5; knee extension: 3- /5; knee flexion: 2+/5 ankle DF: 3 /5 ; ankle PF: 3/5, Quad set Fair with cueing, SLR without lag in shortened range with cues Left Lower Extremity: 5/5 Sensation: intact to touch and pain Bed Mobility/Transfers: [] Supine to sit Supervision Sit to stand SBA and cues to keep right foot on the floor Stand to sit SBA with cues to keep right foot on the floor Bed to chair SBA with FWW and cues for quad activation Gait: amb 75 feet with FWW CGA with cues for quad activation right, Impaired step length, impaired knee flexion right during swing phase impaired foot clearance. Stairs : 3 4 steps? and 2 6 steps with rails CGA with continuous cues for sequencing step to pattern and quad activation right Balance: [] Static Sitting: Normal Dynamic Sitting: Good Static Standing: Good with BUE support on FWW Dynamic Standing: Fair with UE support on FWW Special Tests: [] Mobility Limitations Standardized Measure [] [facility] 6 clicks Basic Mobility Inpatient Short Form: [] Raw Score: 19 CMS Score: 41.77% Informed Consent/Education: Patient instructed in purpose of PT consult. Treatment 06245 Packet containing TKA exercise protocol has been given to patient. Education and training on initial set of 5 reps of exercises that can be done at home have been completed with patient pt requires tactile and verbal cues to initiate quad. functional transfers with CGA with vcs to keep right foot on the floor. Pt tendency to lift right foot of the floor during transitions and also requires cues for proper hand placement. ambulation with FWW 50 feet CGA and cues for quad activation at mid stance to reduce risk of buckling. Assessment: Pt demonstrates poor motor control /activation right quad during functional tasks. Pt requires cues to activate quad in standing. She also needs cues to keep right foot on the floor during transfers sit to from stand. Pt preference to hold right leg in the air during transitions. Patient is an 79 yo female presents with clinical signs and symptoms consistent with current/admitting diagnoses that have resulted to mobility limitations, gait instability, generalized weakness, and impairment of motor control as demonstrated by the following impairment level findings: 1. Decreased strength to right knee major muscle groups 2. Impaired standing balance 3. Limitation of joint range of motion in right knee 4. pain right knee 5. Impaired functional activity tolerance Impairments are contributing to the following functional limitations: 1. Inability to safely ambulate without assistive device 2. Increase completion time for mobility ADL performance 3. Increased fall risk 4. difficulty performing stairs without assistance Patient is assessed as a low complexity based on the following: History: 79-year-old female with impairment level findings, functional limitations, and past medical history as indicated above Examination: Demonstrable impairment in strength, balance, and mobility level with underlying impairments and functional limitations as documented above Presentation: stable/evolving Decision Making: low Goals: N/A. PT evaluation and 1-2 treatment sessions only for functional mobility training using recommended AD and for HEP instruction. Plan of Care/Treatment Plan: N/A. PT evaluation and 1-2 treatment session only for functional mobility training using recommended AD and for HEP instruction. DISCHARGE RECOMMENDATIONS: Home with HEP and Outpatient PT as scheduled TREATMENT CODE/TIME: 34102,20611/ [id number] Thank you for the opportunity to participate in the care of this patient. Anna Simons PT [facility]
[2025-06-02] MEDS: metFORMIN 500 MG TAB PO (11:31)
== END 2025-06-02 11:54 | disposition home or self-care (01) ==
PROVIDERS: PCP Family Medicine; Visit Provider Student in an Organized Health Care Education/Training Program
PROC: (CPT 27447; principal; 2025-06-02 07:30)
DX: M17.11 Unilateral primary osteoarthritis, right knee (principal)
CPT/HCPCS: 20985; 27447; 64447; 97161; 97530; C1776; J0665; J0666; J0690; J1100; J2003; J2404; J2405; J2704; J3010